=== PATIENT | male | born 1935 | race Two or more races ===

== ENCOUNTER 2020-05-24 11:49 | Outpatient (REF) | payer MEDICARE, SELFPAY ==
[2020-05-24 14:59] LABS: Prostate Specific Antigen < 0.05 ng/mL (<0.05-4.0)
== END 2020-05-24 11:50 | disposition home or self-care (01) ==
LOC: HO.10HDL 11:49
PROVIDERS: Visit Provider Urology
DX: C61 Malignant neoplasm of prostate (principal)
CPT/HCPCS: 84153

== ENCOUNTER → 2020-08-20 14:04 | Outpatient (BNVA) | payer MEDICARE, SELFPAY | PROVIDERS: PCP Physician Assistant; Referring Provider Physician Assistant; Visit Provider Urology | DX: C61 Malignant neoplasm of prostate (principal) | CPT/HCPCS: 96402; 99212; J9217 ==

== ENCOUNTER → 2020-11-19 14:40 | Outpatient (BNVA) | payer MEDICARE, SELFPAY | PROVIDERS: PCP Nurse Practitioner Family; Visit Provider Urology | DX: Z13.89 Encounter for screening for other disorder (principal) | CPT/HCPCS: Q3014 ==

== ENCOUNTER → 2020-12-17 13:57 | Outpatient (BNVA) | payer MEDICARE, SELFPAY | PROVIDERS: PCP Physician Assistant; Visit Provider Nurse Practitioner Gerontology | DX: E11.42 Type 2 diabetes mellitus with diabetic polyneuropathy (principal); E78.5 Hyperlipidemia, unspecified; I10 Essential (primary) hypertension | CPT/HCPCS: Q3014 ==

== ENCOUNTER → 2021-03-16 15:22 | Outpatient (BNVA) | payer MEDICARE, SELFPAY | PROVIDERS: Visit Provider Urology | DX: C61 Malignant neoplasm of prostate (principal); N40.1 Benign prostatic hyperplasia with lower urinary tract symptoms; N13.8 Other obstructive and reflux uropathy; E11.42 Type 2 diabetes mellitus with diabetic polyneuropathy; E78.5 Hyperlipidemia, unspecified; Z92.3 Personal history of irradiation | CPT/HCPCS: 96402; 99212; J9217 ==

== ENCOUNTER → 2021-03-25 13:23 | Outpatient (BNVA) | payer MEDICARE, SELFPAY | PROVIDERS: Visit Provider Nurse Practitioner Gerontology | DX: Z13.89 Encounter for screening for other disorder (principal) | CPT/HCPCS: Q3014 ==

== ENCOUNTER 2021-06-15 07:21 | Outpatient (REF) | payer MEDICARE, SELFPAY ==
[2021-06-15 08:15] LABS: Estimated Average Glucose 174 mg/dL; Hemoglobin A1c % 7.7 %
[2021-06-15 08:17] LABS: Alanine Aminotransferase 19 U/L (0-40); Alkaline Phosphatase 65 U/L (39-117); Anion Gap 12 (12-20); Aspartate Amino Transferase 14 U/L (5-37); Bilirubin Total 0.6 mg/dL (0.0-1.0); Blood Urea Nitrogen 15 mg/dL (9-16); Calcium 9.3 mg/dL (8.4-10.2); Carbon Dioxide 29 mmol/L (22-29); Chloride 102 mmol/L (96-108); Cholesterol 132 mg/dL; Estimated Glomerular Filt Rate > 60; Glucose Fasting 167 mg/dL (60-99); HDL Cholesterol 48 mg/dL; LDL Cholesterol Calculated 70 mg/dl; Potassium 4.3 mmol/L (3.3-5.1); Sodium 139 mmol/L (135-145); Total Protein 6.7 g/dL (6.5-8.0); Triglycerides 72 mg/dL
[2021-06-15 08:36] LABS: Prostate Specific Antigen < 0.05 ng/mL (<0.05-4.0)
[2021-06-15 09:32] LABS: Creatinine Urine 56.94 mg/dL; Microalbum/Creatinine Ratio Ur 12.2 ug/mg cr
[2021-06-17 13:30] LABS: LDL Cholesterol Direct 68 mg/dL (<100)
[2021-06-21 11:47] LABS: Testosterone, Total 18 ng/dL (250-1100)
== END 2021-06-15 07:22 | disposition home or self-care (01) ==
LOC: HO.LAB 07:21
PROVIDERS: Absent Provider Nurse Practitioner Gerontology; PCP Physician Assistant; Visit Provider Urology
DX: Z12.5 Encounter for screening for malignant neoplasm of prostate (principal); C61 Malignant neoplasm of prostate; E11.42 Type 2 diabetes mellitus with diabetic polyneuropathy
CPT/HCPCS: 36415; 80053; 80061; 82043; 83036; 83721; 84153; 84403

== ENCOUNTER → 2021-06-22 13:16 | Outpatient (BNVA) | payer MEDICARE, SELFPAY | PROVIDERS: PCP Physician Assistant; Visit Provider Urology | DX: Z13.89 Encounter for screening for other disorder (principal) | CPT/HCPCS: Q3014 ==

== ENCOUNTER → 2021-08-05 13:49 | Outpatient (BNVA) | payer MEDICARE, SELFPAY | PROVIDERS: PCP Physician Assistant; Visit Provider Nurse Practitioner Gerontology | DX: Z13.89 Encounter for screening for other disorder (principal) | CPT/HCPCS: Q3014 ==

== ENCOUNTER 2021-10-24 16:22 | Outpatient (REF) | payer OTHER, SELFPAY ==
--- NOTE | ~2021-10-24 | MR_ITS ---
MRI OF THE BRAIN WITHOUT IV CONTRAST INDICATION: Amnesia. COMPARISON: None available. TECHNIQUE: Multiplanar multisequence MR imaging of the brain was obtained without IV contrast. FINDINGS: There is no hydrocephalus, extra-axial surface collection, or herniation. There is severe left-sided mesial temporal volume loss with associated T2 signal changes suggesting left-sided mesial temporal sclerosis. The left temporal lobe overall is decreased in size comparison to the right side seen in the setting of semantic variant primary progressive aphasia or other neurodegenerative processes and can be clinically correlated. There is background level cervical volume loss and there is moderate chronic microangiopathy. Loss of the distal cervical and intradural right vertebral artery flow void suggesting slow flow within versus occlusion of this vessel. Etat crible appearance of the basal ganglia bilaterally as the sequela of chronic hypertension. The major flow voids at the skull base are preserved. There is no acute infarct on diffusion-weighted imaging. There is no intracranial hemorrhage on the gradient recalled echo acquisition. The midline structures are normal. The cerebellar tonsils are normally positioned. The cerebellum and brainstem are normal. The craniocervical junction is normal. Osseous marrow signal intensity is homogenous. The visualized soft tissues are unremarkable. There is a retention cyst within the left maxillary sinus. Mild mucosal thickening throughout the ethmoid air cells bilaterally. MR/MR head/brain wo con IMPRESSION: - There is severe left-sided mesial temporal volume loss with associated T2 signal changes suggesting left-sided mesial temporal sclerosis. The left temporal lobe overall is decreased in size comparison to the right side seen in the setting of semantic variant primary progressive aphasia or other neurodegenerative processes and can be clinically correlated. - There is background level cervical volume loss and there is moderate chronic microangiopathy. Etat crible appearance of the basal ganglia bilaterally as the sequela of chronic hypertension. - Loss of the distal cervical and intradural right vertebral artery flow void suggesting slow flow within versus occlusion of this vessel.
[2021-10-24 17:51] LABS: Hematocrit 36.7 % (42.0-52.0); Hemoglobin 12.2 g/dl (14.0-18.0); Mean Corpuscular HGB Conc 33.2 g/dl (31.0-36.0); Mean Corpuscular Hemoglobin 31.4 pg (27.0-33.0); Mean Corpuscular Volume 94.3 fL (80.0-98.0); Mean Platelet Volume 10.4 fL (9.4-12.4); Platelet Count 241 X10*3/uL (160-400); Red Blood Count 3.89 X10*6/uL (4.60-5.80); Red Cell Distribution Width 12.5 % (11.0-16.0); White Blood Count 5.7 X10*3/uL (4.8-10.8)
[2021-10-24 17:57] LABS: Estimated Average Glucose 166 mg/dL; Hemoglobin A1c % 7.4 %
[2021-10-24 18:02] LABS: Appearance Urine CLEAR; Color Urine YELLOW; Glucose Urine UA NEG (NEG); Leukocyte Esterase Urine NEG (NEG); Nitrite Urine NEG (NEG); Urine Blood NEG (NEG); Urine Ketones NEG (NEG); Urine Protein NEG (NEG-TRACE)
[2021-10-24 18:21] LABS: Creatinine Urine 41.75 mg/dL
[2021-10-24 18:22] LABS: Cholesterol 149 mg/dL; HDL Cholesterol 60 mg/dL; Iron 50 mcg/dL (45-160); LDL Cholesterol Calculated 74 mg/dl; Percent Iron Saturation 17 % (15-50); Total Iron Binding Capacity 299 mcg/dL (228-428); Triglycerides 77 mg/dL; Unsaturated Iron Binding 249 ug/dL
[2021-10-24 18:33] LABS: Ferritin 32 ng/mL (20-250)
[2021-10-24 18:45] LABS: Prostate Specific Antigen < 0.05 ng/mL (<0.05-4.0)
[2021-10-24 18:48] LABS: Vitamin B12 227 pg/mL (200-900)
[2021-10-29 08:42] LABS: Testosterone, Total 11 ng/dL (250-1100)
== END 2021-10-24 16:23 | disposition home or self-care (01) ==
LOC: HO.MRI 16:22
PROVIDERS: Absent Provider Urology; PCP Physician Assistant; Visit Provider Physician Assistant
DX: Z12.5 Encounter for screening for malignant neoplasm of prostate (principal); R41.3 Other amnesia; I10 Essential (primary) hypertension; C61 Malignant neoplasm of prostate; E78.5 Hyperlipidemia, unspecified; R30.0 Dysuria; E11.42 Type 2 diabetes mellitus with diabetic polyneuropathy; D50.9 Iron deficiency anemia, unspecified
CPT/HCPCS: 36415; 70551; 80061; 81003; 82043; 82607; 82728; 82746; 83036; 83540; 84153; 84403; 85027

== ENCOUNTER → 2021-11-02 14:34 | Outpatient (BNVA) | payer OTHER, SELFPAY | PROVIDERS: PCP Physician Assistant; Visit Provider Urology | DX: Z13.89 Encounter for screening for other disorder (principal) | CPT/HCPCS: Q3014 ==

== ENCOUNTER → 2021-11-22 07:56 | Outpatient (BNVA) | payer OTHER, SELFPAY | PROVIDERS: PCP Physician Assistant; Visit Provider Nurse Practitioner Gerontology | DX: E11.42 Type 2 diabetes mellitus with diabetic polyneuropathy (principal); E78.5 Hyperlipidemia, unspecified; I10 Essential (primary) hypertension | CPT/HCPCS: Q3014 ==

== ENCOUNTER 2022-02-24 12:47 | Outpatient (REF) | payer OTHER, SELFPAY ==
[2022-02-24 14:47] LABS: Prostate Specific Antigen < 0.05 ng/mL (<0.05-4.0)
[2022-03-01 13:31] LABS: Testosterone, Total 14 ng/dL (250-1100)
== END 2022-02-24 12:48 | disposition home or self-care (01) ==
LOC: HO.10HDL 12:47
PROVIDERS: Visit Provider Urology
DX: Z12.5 Encounter for screening for malignant neoplasm of prostate (principal); C61 Malignant neoplasm of prostate
CPT/HCPCS: 36415; 84153; 84403

== ENCOUNTER → 2022-03-03 09:32 | Outpatient (BNVA) | payer OTHER, SELFPAY | PROVIDERS: PCP Physician Assistant; Visit Provider Urology | DX: C61 Malignant neoplasm of prostate (principal) | CPT/HCPCS: Q3014 ==

== ENCOUNTER 2022-09-09 09:27 | Outpatient (REF) | payer OTHER, SELFPAY ==
[2022-09-09 11:44] LABS: Prostate Specific Antigen < 0.10 ng/mL (<0.05-4.0)
== END 2022-09-09 09:28 | disposition home or self-care (01) ==
LOC: HO.LAB 09:27
PROVIDERS: PCP Physician Assistant; Visit Provider Urology
DX: Z12.5 Encounter for screening for malignant neoplasm of prostate (principal); C61 Malignant neoplasm of prostate
CPT/HCPCS: 36415; 84153

== ENCOUNTER → 2022-09-15 10:37 | Outpatient (BNVA) | payer OTHER, SELFPAY | PROVIDERS: PCP Physician Assistant; Visit Provider Urology | DX: C61 Malignant neoplasm of prostate (principal); E11.42 Type 2 diabetes mellitus with diabetic polyneuropathy; Z92.3 Personal history of irradiation; Z79.82 Long term (current) use of aspirin; Z79.4 Long term (current) use of insulin; Z79.899 Other long term (current) drug therapy | CPT/HCPCS: Q3014 ==

== ENCOUNTER → 2023-01-23 11:22 | Outpatient (BNVA) | payer OTHER, SELFPAY | PROVIDERS: PCP Physician Assistant; Visit Provider Urology | DX: C61 Malignant neoplasm of prostate (principal); Z92.3 Personal history of irradiation | CPT/HCPCS: Q3014 ==

== ENCOUNTER 2023-02-08 15:35 | Outpatient (AMB) | payer OTHER, SELFPAY ==
--- NOTE | 2023-02-08 15:36 | MHC.PC.OV ---
Vital Signs 02/08/23 15:39 Height 5 ft 6 in Weight 188 lb 2 oz BMI 30.4 BP 132/76 Blood Pressure Location Lt brachial Position Sitting Pulse 90 Pulse Source Pulse Oximeter Pulse Oximetry (%) 98 Oxygen Delivery Method Room Air Intake Visit Reasons: Dysphagia/bilateral knee pain Intake Note: pt is here for f/u on dysphagia/bilateral knee pain, lot of pain while walking, and patient has been sleeping more then normal [employer] Superintendent Required: No Accompanied by: Daughter Allergies No Known Allergies [No Known Allergies*] Allergy (Verified 02/08/23 15:51) Medication List - Last Reconciled 02/08/23 by Julien Stacy PA-C aspirin 81 mg PO QAM atorvastatin 40 mg PO QAM blood pressure monitor (Blood Pressure Kit) As directed calcium carbonate-vitamin D3 500 mg-5 mcg (200 unit) (Oyster Shell Calcium-Vitamin D3) 1 tab PO QAM 90 days donepezil 10 mg PO BEDTIME dulaglutide (Trulicity) 0.75 mg (0.5 mL) subcut QWEEK flash glucose scanning reader As directed flash glucose sensor (TOK.tvyle Aleksandra 14 Day Sensor kit) 1 ea topical Q2W ibuprofen 800 mg PO TID lisinopril 10 mg PO QAM metformin 1,000 mg PO BID 90 days pen needle, diabetic (BD Ultra-Fine Lydia Pen Needle) 1 ea subcut DAILY tamsulosin 0.4 mg PO BEDTIME 90 days Tobacco use date assessed: 02/08/23 Fall risk assessment: 1 Fall in past year Last assessed Fall Risk: 02/08/23 Dental Screening Dental Screen Date: 02/08/23 Did you have a dental visit in the last 12 months?: No Did you have a dental problem in the last 6 months where you did not have access to dental care?: No Was dental information given to patient?: No HPI Dysphagia/bilateral knee pain HPI Details Patient is an 87 -year-old male here today for a f/u visit. . . His daughter is giving the majority of his history. ? Patient's past medical history significant for hypertension, dementia, type 2 diabetes. Concerns--> family is concerned about patient's depression as he has been more withdrawn from family as of lately. Has been having decreased appetite. Fortunately has not lost any significant amount of weight since last office visit. Also family concerned about patient's balance as he has been complaining of his bilateral knee pains. Not interested in seeing Orthopedics at this time for cortisone injections ? .. .. HTN: Blood pressure acceptable today in office.? Continues on lisinopril with good effect. ? .. ? Diabetes type 2: Is followed by Endocrine. Patient was recently taken off Tresiba hypoglycemia.? Today's A1c at 8.1. Family reports he has not been adherent by a diabetic diet, often snacking on sugar and carbohydrates. Has been restarted on trulicity 0.75 weekly. Report his blood sugars have been 130-160s ?. ? .. ? Prostate cancer: Patient is followed by Urology and is currently on chemotherapy. Recent PSAs have been undetectable. Patient denies any urinary symptoms. 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 Mother FH: ovarian cancer Daughter Drowning, accidental Daughter Lupus Social History Household Members Other:: DAughter Housing: House Alcohol intake: former Patient Tobacco Use Status: Former Tobacco user e-Cigarette/Vaping Use: Never Used service: No Current occupational status: disabled Cognitive needs: Yes Hearing needs: No Vision needs: Yes Questionnaire PHQ-9 Over the last 2 weeks, how often have you been bothered by any of the following problems? 1. Little interest or pleasure in doing things: not at all 2. Feeling down, depressed, or hopeless: not at all 3. Trouble falling or staying asleep, or sleeping too much: not at all 4. Feeling tired or having little energy: not at all 5. Poor appetite or overeating: not at all 6. Feeling bad about yourself - or that you are a failure or have let yourself or your family down: not at all 7. Trouble concentrating on things, such as reading the newspaper or watching television: not at all 8. Moving or speaking so slowly that other people could have noticed. Or the opposite - being so fidgety or restless that you have been moving around a lot more than usual: not at all 9. Thoughts that you would be better off or of hurting yourself in some way: not at all Total score: 0 Depression Screening Interpretation: Negative 76509 - PHQ-9 Billing: Yes Source: Developed by Drs. Dev Thompson, Leila Saini, Glen Santiago and colleagues, with an educational rica from [employer]. Thrive Questionnaire Date Thrive assessed: 02/08/23 I am a: Patient What is your living situation today?: I have a steady place to live Within the past 12 months, did the food you bought not last and you didn't have the money to get more?: Never true Within the past 12 months, did you worry whether your food would run out before you got money to buy more?: Never true Do you have trouble paying for medicines?: No Do you have trouble getting transportation to medical appointments?: No Do you have trouble paying your heating and electricity bill?: No Do you have trouble taking care of your child, family member or friend?: No Do you have trouble with day-to-day activities such as bathing, preparing meals, shopping, managing finances, etc.?: No Are you currently unemployed and looking for a job?: No Are you interested in more education?: No Please select the resources that you would like help with: None Currently or been in a relationship where the following occur: no concerns reported MARIANA-7 AMB Questionnaire MARIANA-7 Date MARIANA - 7 assessed: 02/08/23 Feeling nervous, anxious, or on edge: 0 = Not at all Not being able to stop or control worryin = Not at all Worrying too much about different things: 0 = Not at all Trouble relaxin = Not at all Being so restless that it is hard to sit still: 0 = Not at all Becoming easily annoyed or irritable: 0 = Not at all Feeling afraid as if something awful might happen: 0 = Not at all Total MARIANA-7 score (0-4 normal; 5-9 mild; 10-14 moderate; 15-21 severe): 0 Source: Developed by Drs. Dev Thompson, Leila Saini, Glen Santiago and colleagues, with an educational rica from [employer]. MARIANA-7 Assessment Billing MARIANA-7 Assessment Tool: MARIANA-7 Assessment [id number] Review of Systems Const Denies headache(s) Eyes Denies loss of vision ENT Denies vertigo, Denies dizziness, Denies headache(s) and Denies sore throat Card Denies chest pain, Denies leg edema and Denies lightheadedness Resp Denies cough, Denies hemoptysis and Denies wheezing GI Denies abdominal pain, Denies melena, Denies constipation, Denies diarrhea and Denies vomiting Denies dysuria, Denies urinary frequency and Denies urinary urgency Musc Denies arthralgias, Denies joint swelling, Denies numbness and Denies tingling Neuro Denies Abnormal speech present, Denies behavioral changes, Denies vertigo, Denies dizziness, Denies headache(s), Denies loss of vision, Denies memory loss, Denies numbness and Denies tingling Psych Denies anxiety, Denies behavioral changes, Denies depression, Denies memory loss and Denies panic attacks Abrahan/Lymph Denies easy bleeding and Denies easy bruising Aller/Immun Denies wheezing Physical exam (Primary Care) Vital Signs: Last Vital Signs Pulse 90 02/08/23 15:39 BP 132/76 02/08/23 15:39 Pulse Ox 98 02/08/23 15:39 Oxygen Delivery Method Room Air 02/08/23 15:39 BMI result Body Mass Index 30.4 Tobacco/Smoking Status: Tobacco use Status Tobacco use date assessed 02/08/23 02/08/23 15:48 Patient Tobacco Use Status Former Tobacco user 02/08/23 15:48 e-Cigarette/Vaping Use Never Used 02/08/23 15:48 PHQ-9: PHQ-9 Score PHQ-9: Total score 0 02/08/23 15:52 Depression Screening Interpretation: Negative Thrive Assessment: Date of Thrive Assessment Date Thrive assessed 02/08/23 02/08/23 15:48 Currently or been in a relationship where the following occur: no concerns reported Const General: healthy appearing, no acute distress, alert and awake Nutritional Appearance: well nourished Orientation/consciousness: oriented to person, oriented to place and oriented to time HENMT Ears: TM's normal bilaterally General nose exam: Normal nasal mucous membranes and turbinates present Eyes Conjunctivae: conjunctivae normal Sclerae: sclerae normal Pupils: Equal, round and reactive pupils present Neck Neck: Yes no lymphadenopathy and Yes no JVD Thyroid: Thyroid normal Carotids: no bruits Resp Effort & Inspection: normal respiratory effort and not tachypneic Auscultation: no crackles, no rales, no rhonchi and no wheezes Cardio Rate: regular rate Rhythm: regular rhythm Heart sounds: no murmurs and normal S1 and S2 GI Palpation (GI): Soft to palpation, nontender, no hepatomegaly and no splenomegaly Auscultation: normal bowel sounds Skin General skin exam: no rashes or lesions noted and dry skin Neuro General: oriented to person, oriented to place and oriented to time Cranial nerves: Yes Equal, round and reactive pupils present Speech: No Abnormal speech present Gait exam (Neuro): Normal gait present Motor exam (neuro): no tremor noted Extrem Right upper extremity: full ROM Left upper extremity: full ROM Right lower extremity: full ROM; no edema Left lower extremity: full ROM; no edema Psych Mental Status: mental status grossly normal Speech and movement: Normal speech and movement present Affect: normal affect Attitude: cooperative Thought process: Normal thought process present Results AMB Hemoglobin A1c AMB Hemoglobin A1c 8.2 % Last Edit by Mason Shaw CMA on 02/08/23 16:21 Results Reviewed Results Reviewed: Laboratory Last Values Hgb A1c (Clinic) 8.2 % (4.0-6.0) H 02/08/23 16:14 Assessment and Plan Assessment & Plan (1) Osteoarthritis of knees, bilateral: Code(s): M17.0 - Bilateral primary osteoarthritis of knee Qualifiers: Osteoarthritis type: primary Qualified Code(s): M17.0 - Bilateral primary osteoarthritis of knee Plan: Patient with knee osteoarthritis. Has been having trouble walking and has some pain in his bilateral knees. Has been using ibuprofen and topical treatments with only minimal relief. Advised on orthopedic evaluation of possible cortisone injection though patient declining. (2) Prostate cancer: Comment: High-grade 2019 external beam radiation with hormone therapy Code(s): C61 - Malignant neoplasm of prostate Plan: Continues to follow urology for his prostate cancer, has been treated with radiation and hormone therapy. He continues to have urinary incontinence to which he does use of though briefs. Most recent PSA undetectable (3) HTN (hypertension): Code(s): I10 - Essential (primary) hypertension Qualifiers: Hypertension type: primary hypertension Qualified Code(s): I10 - Essential (primary) hypertension Plan: Patient's blood pressure acceptable today in office. Will continue current dose of antihypertensive medication with goal blood pressure to be below 140/90 (4) Type 2 diabetes mellitus with polyneuropathy: Code(s): E11.42 - Type 2 diabetes mellitus with diabetic polyneuropathy Plan: Patient continues on Trulicity weekly and metformin 1000 b.i.d.. Blood sugars have been fairly stable. Goal A1c is to remain below 8.0 due to patient's age in correlated ease. (5) MDD (major depressive disorder), recurrent episode, moderate: Code(s): F33.1 - Major depressive disorder, recurrent, moderate Plan: Family is concerned about patient's mood, does seem somewhat depressed at times. Has been withdrawn from family. Family willing to start patient on mirtazapine 7.5 mg to help increase his appetite and decrease his depression. Orders: Orders Comprehensive Collins. Panel Fast 02/08/23 I10 - Essential (primary) hypertension Lipid Panel 02/08/23 E78.5 - Hyperlipidemia, unspecified Microalbumin, Random (w Creat) 02/08/23 E11.42 - Type 2 diabetes mellitus with diabetic polyneuropathy Complete Blood Count no Diff 02/08/23 E11.42 - Type 2 diabetes mellitus with diabetic polyneuropathy AMB Hemoglobin A1c 02/08/23 E11.9 - Type 2 diabetes mellitus without complications Medications: New mirtazapine 7.5 mg PO BEDTIME 90 days 90 tabs 1RF F33.1 - Major depressive disorder, recurrent, moderate ibuprofen 800 mg PO TID 30 days PRN 90 tabs 1RF pain M17.0 - Bilateral primary osteoarthritis of knee Coding Level of Care Code Est Pt Level 4 (54547) Diagnoses Osteoarthritis of knees, bilateral M17.0 Osteoarthritis type: primary Prostate cancer C61 HTN (hypertension) I10 Hypertension type: primary hypertension Type 2 diabetes mellitus with polyneuropathy E11.42 MDD (major depressive disorder), recurrent episode, moderate F33.1 Additional Codes MARIANA-7 Assessment Billing - MARIANA-7 Assessment Tool: MARIANA-7 Assessment [id number] ([id number])
[2023-02-08 15:39] VITALS: BP 132/76; PULSE 90; O2SAT 98; BMI 30.4
== END 2023-02-08 16:26 | disposition home or self-care (01) ==
PROVIDERS: Visit Provider Physician Assistant
DX: M17.0 Bilateral primary osteoarthritis of knee (principal); C61 Malignant neoplasm of prostate; I10 Essential (primary) hypertension; E11.42 Type 2 diabetes mellitus with diabetic polyneuropathy; F33.1 Major depressive disorder, recurrent, moderate
CPT/HCPCS: 83036; 96127; 99214

== ENCOUNTER 2023-07-09 15:57 | Outpatient (REF) | payer OTHER, SELFPAY ==
[2023-07-09 16:20] LABS: MANUAL DIFF FLAG NO
[2023-07-09 17:23] LABS: Urine Cytology See Pathology rpt
[2023-07-09 17:30] LABS: Appearance Urine Cloudy; Color Urine Dark Yellow; Glucose Urine UA Negative (Negative); Leukocyte Esterase Urine Moderate (2+) (Negative); Nitrite Urine Negative (Negative); PH 5.5 (5.0-9.0); UMIC TRIGGER UACC YES; Urine Blood Large (3+) (Negative); Urine Ketones Trace mg/dL (Negative); Urine Protein 30 (1+) mg/dL (Neg-Trace)
[2023-07-09 17:35] LABS: Bacteria Urine None Seen (None Seen); Hyaline Casts Urine 0-2 /LPF (0-2); Squamous Epithelial Cell Urine 0-2 /HPF (0-2); UACC Culture Trigger YES; WBC Urine >50 /HPF (0-5)
[2023-07-09 17:37] LABS: RBC Urine >20 /HPF (0-2)
[2023-07-09 17:38] LABS: Basophils Absolute Auto 0.1 X10*3/uL (0.0-0.2); Basophils Percent Auto 0.7 % (0-2); Eosinophils Absolute Auto 0.1 X10*3/uL (0.0-0.4); Eosinophils Percent Auto 1.5 % (0-4); Hematocrit 36.1 % (42.0-52.0); Hemoglobin 11.9 g/dl (14.0-18.0); Imm Gran Abs Auto 0.06 X10*3/uL (0.00-0.03); Imm Gran Pct Auto 0.9 % (0.0-0.4); Lymphocytes Absolute Auto 1.8 X10*3/uL (1.2-4.9); Mean Corpuscular Hemoglobin 30.5 pg (27.0-33.0); Mean Corpuscular Volume 92.6 fL (80.0-98.0); Mean Platelet Volume 10.7 fL (9.4-12.4); Monocytes Absolute Auto 0.6 X10*3/uL (0.1-1.2); Monocytes Percent Auto 8.1 % (2-11); Neutrophils Absolute Auto 4.2 x10*3/uL (2.0-8.3); Neutrophils Percent Auto 61.8 % (45-73); Platelet Count 276 X10*3/uL (160-400); Red Cell Distribution Width 12.4 % (11.0-16.0); White Blood Count 6.8 X10*3/uL (4.8-10.8)
[2023-07-09 17:49] LABS: Alanine Aminotransferase 16 U/L (0-40); Albumin Level 4.2 g/dL (3.5-5.0); Alkaline Phosphatase 72 U/L (39-117); Anion Gap 15 (12-20); Aspartate Amino Transferase 16 U/L (5-37); Bilirubin Total 0.4 mg/dL (0.0-1.0); Blood Urea Nitrogen 15 mg/dL (9-16); Carbon Dioxide 27 mmol/L (22-29); Chloride 99 mmol/L (96-108); Estimated Glomerular Filt Rate > 60; Glucose Random 157 mg/dL (60-115); Potassium 3.9 mmol/L (3.3-5.1); Sodium 137 mmol/L (135-145); Total Protein 7.5 g/dL (6.5-8.0)
[2023-07-09 18:15] LABS: Prostate Specific Antigen < 0.10 ng/mL (<0.05-4.0)
== END 2023-07-09 15:58 | disposition home or self-care (01) ==
LOC: HO.LAB 15:57
PROVIDERS: Internal Medicine; Urology; PCP Physician Assistant; Visit Provider Physician Assistant
DX: R31.9 Hematuria, unspecified (principal); R31.1 Benign essential microscopic hematuria; C61 Malignant neoplasm of prostate; Z12.5 Encounter for screening for malignant neoplasm of prostate
CPT/HCPCS: 36415; 80053; 81001; 84153; 85025; 87086; 88112

== ENCOUNTER 2023-07-12 09:19 | Outpatient (AMB) | payer OTHER, SELFPAY ==
--- NOTE | 2023-07-12 09:38 | MHC.OFFVIS ---
Intake Intake Visit Reasons: 6m/PSA(set) Intake Note: Patient is Present for Follow Up PSA/PVR Urology Medication: Tamsulosin Antibiotic Allergies: None Blood Thinners: Aspirin PVR: Compliants: Patient has been having some urinary issues. Allergies No Known Allergies [No Known Allergies*] Allergy (Verified 07/12/23 09:39) HPI HPI Comments History of Present Illness Details Clemente is a pleasant male. He is a patient of Dr. Christensen. He is seen for the following urologic condition. - prostate cancer Lao translation provided by qualified medical device assembler PSA remaining in range Had episode of hematuria Secondary to use of 800 mg ibuprofen twice a day for a week for arthritis pain Discussed minimizing any inflammatories Six month follow-up PSA Prostate cancer Group 4 - EXRT plus hormones diagnosed 2018 - last GnRH February 2021 Prostate cancer diagnosed by Dr. Hoover 2018 Original pathology Anurag 6 and Anurag 8 Initial treatment external beam radiation with 2 years of hormone therapy GnRH and Casodex Completed finasteride till 02/17 PSA - 08/19 <0.1, 03/19 <0.1, 06/19 PSA <0.1, T 18, 10/24 <0.1 T11, 02/17 <0.1 14, 09/21 <0.1, 01/19 <0.1, 07/21 <0.1 Continue to follow-up every 6 months with lab work [facility] Medical History Type 2 diabetes mellitus with polyneuropathy Memory difficulties Prostate cancer Type 2 diabetes mellitus with polyneuropathy Hyperlipidemia LDL goal <100 Surgical History History of cataract surgery History of open reduction and internal fixation (ORIF) procedure Family History Father No problems noted. Mother FH: ovarian cancer Daughter Drowning, accidental Daughter Lupus Social History Household Members Other:: DAughter Housing: House Alcohol intake: former Patient Tobacco Use Status: Former Tobacco user e-Cigarette/Vaping Use: Never Used service: No Current occupational status: disabled Cognitive needs: Yes Hearing needs: No Vision needs: Yes Review of Systems Const Denies chills and Denies fever(s) Card Reports no additional complaints and Denies syncope Resp Denies cough GI Denies abdominal pain and Denies heartburn Reports as per HPI and Denies change in libido Neuro Denies syncope Psych Denies change in libido Endo Denies change in libido Physical Exam Const General: cooperative, healthy appearing, comfortable and no acute distress Orientation/consciousness: patient oriented x3 HEENT Face and sinus: Yes normal facial exam Mouth: moist mucous membranes Neck Neck: Yes normal visual inspection, Yes full ROM and Yes trachea midline Chest Chest palpation & inspection: normal inspection of the chest Resp Effort & Inspection: normal respiratory effort, able to speak in complete sentences and no respiratory distress GI Inspection: Yes normal to inspection Back/Spine/Pelvis Cervical Spine: normal cervical lordosis Thoracic/Lumbar Spine: thoracic and lumbar spine normal to inspection Skin General skin exam: no rashes or lesions noted Neuro General: patient oriented x3, gait normal, tone normal and moves all extremities Extrem General: Yes normal to inspection and Yes capillary refill normal Assessment & Plan Assessment & Plan (1) Prostate cancer: Comment: High-grade 2019 external beam radiation with hormone therapy Code(s): C61 - Malignant neoplasm of prostate (2) Hematuria: Code(s): R31.9 - Hematuria, unspecified Plan Six month follow-up lab work Orders: Orders AMB Urinalysis Automated Today Z13.9 - Encounter for screening, unspecified AMB Post Void Residual by ultrasound Today R32 - Unspecified urinary incontinence Patient Instructions: Imaging studies, laboratory and physical exam results were discussed and reviewed in detail. No major barriers to patient understanding were identified. An opportunity to ask questions regarding the treatment plan was provided. All questions were answered. The patient expressed understanding and agreement with the above treatment plan. The patient is aware they should contact our office by phone for worsening of their current condition or the appearance of new urologic symptoms. Compliance is encouraged with any medications and followup testing that is ordered. It is a privilege to participate in the urologic care of your patient. If you have any questions or concerns regarding treatment for the above conditions, or other urologic issues, please do not hesitate to contact me. The office telephone contact is [phone]. This note is constructed using voice recognition software. While every effort has been made to ensure accuracy automobile accessories installer errors may have been included. Yours sincerely, Dr Deuce Oropeza MD, [facility] - Urology Providers of Expert, Compassionate Care for the Genitourinary System Coding Level of Care Code Tele Est Pt Level 3 (12134) Diagnoses Prostate cancer C61 Hematuria R31.9
== END 2023-07-12 09:55 | disposition home or self-care (01) ==
PROVIDERS: PCP Physician Assistant; Visit Provider Urology
DX: C61 Malignant neoplasm of prostate (principal); R31.9 Hematuria, unspecified
CPT/HCPCS: 99213

== ENCOUNTER → 2023-07-12 09:19 | Outpatient (BNVA) | payer OTHER, SELFPAY | PROVIDERS: PCP Physician Assistant; Visit Provider Urology | DX: C61 Malignant neoplasm of prostate (principal); R31.9 Hematuria, unspecified | CPT/HCPCS: 99212 ==

== ENCOUNTER 2023-08-13 15:29 | Outpatient (AMB) | payer OTHER, SELFPAY ==
--- NOTE | 2023-08-13 16:04 | MHC.PC.OV ---
Vital Signs 08/13/23 16:08 Height 5 ft 6 in Weight 181 lb BMI 29.2 BP 118/64 Blood Pressure Location Lt brachial Position Sitting Pulse 84 Pulse Source Pulse Oximeter Pulse Oximetry (%) 98 Oxygen Delivery Method Room Air Intake Visit Reasons: f/u DMII/ HTN Intake Note: Patient is here to follow up on DMII and HTN. Consulting Practice Manager Required: No Accompanied by: Grand Child Allergies No Known Allergies [No Known Allergies*] Allergy (Verified 08/13/23 16:25) Medication List - Last Reconciled 08/13/23 by Julien Stacy PA-C aspirin 81 mg PO QAM atorvastatin 40 mg PO QAM blood pressure monitor (Blood Pressure Kit) As directed calcium carbonate-vitamin D3 500 mg-5 mcg (200 unit) (Oyster Shell Calcium-Vitamin D3) 1 tab PO QAM 90 days dimethicone 12.5% (Hydraguard-D) 1 appl topical DAILY 30 days donepezil 10 mg PO BEDTIME dulaglutide (Trulicity) 0.75 mg (0.5 mL) subcut QWEEK flash glucose scanning reader As directed flash glucose sensor ([employer] Aleksandra 14 Day Sensor kit) 1 ea topical Q2W ibuprofen 800 mg PO TID PRN 30 days lisinopril 10 mg PO QAM metformin 1,000 mg PO BID 90 days mirtazapine 7.5 mg PO BEDTIME 90 days pen needle, diabetic (BD Ultra-Fine Lydia Pen Needle) 1 ea subcut DAILY tamsulosin 0.4 mg PO BEDTIME 90 days [washable bedpads As directed] Tobacco use date assessed: 08/13/23 HPI f/u DMII/ HTN HPI Details Patient is an 88 -year-old male here today for a f/u visit. . . His daughter is giving the majority of his history. ? Patient's past medical history significant for hypertension, dementia, type 2 diabetes. Concerns--> family concerned about patient's hematuria. Has been taking a lot of ibuprofen due to his arthritic pain. He has followed up with Urology whom recommend reducing NSAIDs. Also will hold aspirin. Awaiting renal ultrasounds at this time. Also family concerned about patient's bilateral pedal edema. No significant weight gain noted. Is fairly sedentary and does not ambulate much thus his pedal edema likely venous stasis/ dependent edema. Also family wondering about a skin lesion over his left facial cheek and would like Dermatology evaluation. ? .. .. HTN: Blood pressure acceptable today in office.? Continues on lisinopril with good effect. ? .. ? Diabetes type 2: Is followed by Endocrine. Patient was recently taken off Tresiba hypoglycemia.? Today's A1c above 9. We tried starting once weekly Trulicity though patient adamantly declines injections. Family reports he has not been adherent by a diabetic diet, often snacking on sugar and carbohydrates. PLAN: Will add on low-dose glipizide in the mornings with largest meal a day. Goal A1c is to be below 8.5 due to patient's age and comorbidities Report his blood sugars have been 130-160s ?. ? .. ? Prostate cancer: Patient is followed by Urology and is currently on chemotherapy. Recent PSAs have been undetectable. Patient denies any urinary symptoms. [facility] Medical History Type 2 diabetes mellitus with polyneuropathy Memory difficulties Prostate cancer Type 2 diabetes mellitus with polyneuropathy Hyperlipidemia LDL goal <100 Surgical History History of cataract surgery History of open reduction and internal fixation (ORIF) procedure Family History Father No problems noted. Mother FH: ovarian cancer Daughter Drowning, accidental Daughter Lupus Social History Household Members Other:: DAughter Housing: House Alcohol intake: former Patient Tobacco Use Status: Former Tobacco user e-Cigarette/Vaping Use: Never Used service: No Current occupational status: disabled Cognitive needs: Yes Hearing needs: No Vision needs: Yes Questionnaire PHQ-9 Over the last 2 weeks, how often have you been bothered by any of the following problems? 1. Little interest or pleasure in doing things: not at all 2. Feeling down, depressed, or hopeless: not at all 3. Trouble falling or staying asleep, or sleeping too much: not at all 4. Feeling tired or having little energy: not at all 5. Poor appetite or overeating: not at all 6. Feeling bad about yourself - or that you are a failure or have let yourself or your family down: not at all 7. Trouble concentrating on things, such as reading the newspaper or watching television: not at all 8. Moving or speaking so slowly that other people could have noticed. Or the opposite - being so fidgety or restless that you have been moving around a lot more than usual: not at all 9. Thoughts that you would be better off or of hurting yourself in some way: not at all Total score: 0 Depression Screening Interpretation: Negative Depression Screening Done: Yes 52277 - PHQ-9 Billing: Yes Source: Developed by Drs. Dev Thompson, Leila Saini, Glen Santiago and colleagues, with an educational rica from [employer]. Thrive Questionnaire Date Thrive assessed: 08/13/23 I am a: Patient What is your living situation today?: I have a steady place to live Within the past 12 months, did the food you bought not last and you didn't have the money to get more?: Never true Within the past 12 months, did you worry whether your food would run out before you got money to buy more?: Never true Do you have trouble paying for medicines?: No Do you have trouble getting transportation to medical appointments?: No Do you have trouble paying your heating and electricity bill?: No Do you have trouble taking care of your child, family member or friend?: No Do you have trouble with day-to-day activities such as bathing, preparing meals, shopping, managing finances, etc.?: No Are you currently unemployed and looking for a job?: No Are you interested in more education?: No Please select the resources that you would like help with: None AUDIT C Alcohol Use Questionnaire (AUDIT-C) 1. How often do you have a drink containing alcohol?: Never 3. How often do you have six or more drinks on one occasion?: Never Total Score: 0 MARIANA-7 AMB Questionnaire MARIANA-7 Date MARIANA - 7 assessed: 08/13/23 Feeling nervous, anxious, or on edge: 0 = Not at all Not being able to stop or control worryin = Not at all Worrying too much about different things: 0 = Not at all Trouble relaxin = Not at all Being so restless that it is hard to sit still: 0 = Not at all Becoming easily annoyed or irritable: 0 = Not at all Feeling afraid as if something awful might happen: 0 = Not at all Total MARIANA-7 score (0-4 normal; 5-9 mild; 10-14 moderate; 15-21 severe): 0 Source: Developed by Drs. Dev Thompson, Leila Saini, Glen Santiago and colleagues, with an educational rica from [employer]. MARIANA-7 Assessment Billing MARIANA-7 Assessment Tool: MARIANA-7 Assessment 04400 Review of Systems Const Denies headache(s) Eyes Denies loss of vision ENT Denies vertigo, Denies dizziness, Denies headache(s) and Denies sore throat Card Denies chest pain, Denies leg edema and Denies lightheadedness Resp Denies cough, Denies hemoptysis and Denies wheezing GI Denies abdominal pain, Denies melena, Denies constipation, Denies diarrhea and Denies vomiting Denies dysuria, Denies urinary frequency and Denies urinary urgency Musc Denies arthralgias, Denies joint swelling, Denies numbness and Denies tingling Neuro Denies Abnormal speech present, Denies behavioral changes, Denies vertigo, Denies dizziness, Denies headache(s), Denies loss of vision, Denies memory loss, Denies numbness and Denies tingling Psych Denies anxiety, Denies behavioral changes, Denies depression, Denies memory loss and Denies panic attacks Abrahan/Lymph Denies easy bleeding and Denies easy bruising Aller/Immun Denies wheezing Physical exam (Primary Care) Vital Signs: Last Vital Signs Pulse 84 08/13/23 16:08 BP 118/64 08/13/23 16:08 Pulse Ox 98 08/13/23 16:08 Oxygen Delivery Method Room Air 08/13/23 16:08 BMI result Body Mass Index 29.2 Tobacco/Smoking Status: Tobacco use Status Tobacco use date assessed 08/13/23 08/13/23 16:22 Patient Tobacco Use Status Former Tobacco user 08/13/23 16:04 e-Cigarette/Vaping Use Never Used 08/13/23 16:04 PHQ-9: PHQ-9 Score PHQ-9: Total score 0 08/13/23 16:26 Depression Screening Interpretation: Negative Thrive Assessment: Date of Thrive Assessment Date Thrive assessed 08/13/23 08/13/23 16:22 Const General: healthy appearing, no acute distress, alert and awake Nutritional Appearance: well nourished Orientation/consciousness: oriented to person, oriented to place and oriented to time HENMT Ears: TM's normal bilaterally General nose exam: Normal nasal mucous membranes and turbinates present Eyes Conjunctivae: conjunctivae normal Sclerae: sclerae normal Pupils: Equal, round and reactive pupils present Neck Neck: Yes no lymphadenopathy and Yes no JVD Thyroid: Thyroid normal Carotids: no bruits Resp Effort & Inspection: normal respiratory effort and not tachypneic Auscultation: no crackles, no rales, no rhonchi and no wheezes Cardio Rate: regular rate Rhythm: regular rhythm Heart sounds: no murmurs and normal S1 and S2 GI Palpation (GI): Soft to palpation, nontender, no hepatomegaly and no splenomegaly Auscultation: normal bowel sounds Skin General skin exam: no rashes or lesions noted and dry skin Neuro General: oriented to person, oriented to place and oriented to time Cranial nerves: Yes Equal, round and reactive pupils present Speech: No Abnormal speech present Gait exam (Neuro): Normal gait present Motor exam (neuro): no tremor noted Extrem Right upper extremity: full ROM Left upper extremity: full ROM Right lower extremity: full ROM and edema Left lower extremity: full ROM and edema Psych Mental Status: mental status grossly normal Speech and movement: Normal speech and movement present Affect: normal affect Attitude: cooperative Thought process: Normal thought process present Results AMB Hemoglobin A1c AMB Hemoglobin A1c 9.4 % Last Edit by SIGIFREDO Johns on 08/13/23 16:21 Results Reviewed Results Reviewed: Laboratory Last Values Hgb A1c (Clinic) 9.4 % (4.0-6.0) H 08/13/23 15:41 Assessment and Plan Assessment & Plan (1) Pedal edema: Code(s): R60.0 - Localized edema Plan: Likely due to sedentary lifestyle. Will supply with low-dose Lasix . Advised on compression socks and cuing patient to get up and move several times a day. (2) Osteoarthritis of knees, bilateral: Code(s): M17.0 - Bilateral primary osteoarthritis of knee Qualifiers: Osteoarthritis type: primary Qualified Code(s): M17.0 - Bilateral primary osteoarthritis of knee Plan: Patient with knee osteoarthritis. Has been having trouble walking and has some pain in his bilateral knees. Has been using ibuprofen and topical treatments with only minimal relief. Advised on orthopedic evaluation of possible cortisone injection though patient declining. (3) Prostate cancer: Comment: High-grade 2019 external beam radiation with hormone therapy Code(s): C61 - Malignant neoplasm of prostate Plan: Continues to follow urology for his prostate cancer, has been treated with radiation and hormone therapy. He continues to have urinary incontinence to which he does use of though briefs. Most recent PSA undetectable Have noted gross hematuria as of lately. Will renal ultrasounds have been ordered. Advised to hold aspirin and reduce ibuprofen use. (4) HTN (hypertension): Code(s): I10 - Essential (primary) hypertension Qualifiers: Hypertension type: primary hypertension Qualified Code(s): I10 - Essential (primary) hypertension Plan: Patient's blood pressure acceptable today in office. Will continue current dose of antihypertensive medication with goal blood pressure to be below 140/90 (5) Type 2 diabetes mellitus with polyneuropathy: Code(s): E11.42 - Type 2 diabetes mellitus with diabetic polyneuropathy Plan: Patient's type 2 diabetes suboptimally controlled. Today's A1c above 9. Have tried to start Trulicity though has stopped wanting to get injections. Will start low-dose glipizide with largest meal a day to try to gain some control of his blood sugars. Goal A1c is to remain below 8.5 due to patient's age in comorbidities (6) MDD (major depressive disorder), recurrent episode, moderate: Code(s): F33.1 - Major depressive disorder, recurrent, moderate Plan: PHQ-9 score 0 Patient continues on mirtazapine before bed. Patient's mood has been somewhat more stable. (7) Dementia: Code(s): F03.90 - Unspecified dementia, unspecified severity, without behavioral disturbance, psychotic disturbance, mood disturbance, and anxiety Qualifiers: Dementia type: unspecified type Dementia behavioral disturbance: without behavioral disturbance Qualified Code(s): F03.90 - Unspecified dementia without behavioral disturbance Plan: Lives at home with family whom takes very good care of him. Patient continues on denies a daily. Orders: Orders AMB Hemoglobin A1c 08/13/23 E11.42 - Type 2 diabetes mellitus with diabetic polyneuropathy US renal BI 08/13/23 R31.9 - Hematuria, unspecified XR KUB 08/13/23 R31.9 - Hematuria, unspecified Referrals Dermatology Referral L98.9 - Disorder of the skin and subcutaneous tissue, unspecified Medications: New furosemide 10 mg (1/2 x 20 mg) PO DAILY 14 days 7 tabs 0RF R60.0 - Localized edema glipizide ER 2.5 mg PO DAILY 30 days 30 tabs 3RF E11.42 - Type 2 diabetes mellitus with diabetic polyneuropathy Discontinued dulaglutide (Trulicity) Discontinued Reason: Doctor's Order 0.75 mg (0.5 mL) subcut QWEEK 6 mL 3RF E11.65 - Type 2 diabetes mellitus with hyperglycemia On Hold aspirin Hold Comment: Doctor's Order 81 mg PO QAM 90 ea 1RF E11.42 - Type 2 diabetes mellitus with diabetic polyneuropathy Coding Level of Care Code Est Pt Level 4 (49742) Diagnoses Pedal edema R60.0 Primary osteoarthritis of both knees M17.0 Osteoarthritis type: primary Prostate cancer C61 Primary hypertension I10 Hypertension type: primary hypertension Type 2 diabetes mellitus with polyneuropathy E11.42 MDD (major depressive disorder), recurrent episode, moderate F33.1 Dementia without behavioral disturbance, unspecified dementia type F03.90 Dementia type: unspecified type Dementia behavioral disturbance: without behavioral disturbance Additional Codes MARIANA-7 Assessment Billing - MARIANA-7 Assessment Tool: MARIANA-7 Assessment 74002 ([id number])
[2023-08-13 16:08] VITALS: BP 118/64; PULSE 84; O2SAT 98; BMI 29.2
== END 2023-08-13 16:44 | disposition home or self-care (01) ==
PROVIDERS: PCP Physician Assistant; Visit Provider Physician Assistant
DX: E11.42 Type 2 diabetes mellitus with diabetic polyneuropathy (principal)
CPT/HCPCS: 83036; 99214

== ENCOUNTER 2023-08-29 14:54 | Outpatient (REF) | payer OTHER, SELFPAY ==
--- NOTE | ~2023-08-29 | XR_ITS ---
EXAMINATION: XR ABDOMEN KUB CLINICAL INDICATION: Hematuria COMPARISON: CT scan of abdomen and pelvis on 11/15/2012 TECHNIQUE: AP view of the abdomen. FINDINGS: AP supine x-rays of the abdomen show nonspecific bowel gas pattern. No abnormal bowel dilatation is seen. There is diffuse fecal retention in the colon. There is normal visualization of rectal bowel gas and fecal shadows. A 0.8 cm round calcification is seen in medial right upper abdomen, corresponding to calcified gallstones seen on CT scan. Bilateral lower pelvic phleboliths and midline lower pelvic surgical clips overlapping the pubic bones are seen. XR/XR KUB IMPRESSION: 1. Nonspecific bowel gas pattern. 2. Diffuse fecal retention. 3. Calcified gallstone is present. 4. No renal calculi could be found.
--- NOTE | ~2023-08-29 | US_ITS ---
EXAMINATION: US RETROPERITONEAL LIMITED (RENAL ONLY) CLINICAL INFORMATION: Hematuria, unspecified. COMPARISON: CT abdomen and pelvis with contrast 11/15/2012. TECHNIQUE: Real-time imaging of the kidneys. FINDINGS: RIGHT KIDNEY: 10.8 x 5.7 x 6.0 cm (SAG x AP x TRV). The kidney is normal in size and contour and echogenicity. Renal cortical thickness is normal. No calculi or focal parenchymal lesions. No hydronephrosis. LEFT KIDNEY: 12.0 x 5.5 x 5.5 cm (SAG x AP x TRV). The kidney is normal in size and contour and echogenicity. Renal cortical thickness is normal. No calculi or focal parenchymal lesions. No hydronephrosis. US/US renal BI IMPRESSION: Unremarkable renal ultrasound.
== END 2023-08-29 14:55 | disposition home or self-care (01) ==
LOC: HO.US 14:54
PROVIDERS: PCP Physician Assistant; Visit Provider Physician Assistant
DX: R31.9 Hematuria, unspecified (principal)
CPT/HCPCS: 74018; 76775

== ENCOUNTER 2024-01-04 10:11 | Outpatient (REF) | payer OTHER, SELFPAY ==
[2024-01-04 11:50] LABS: Prostate Specific Antigen < 0.10 ng/mL (<0.05-4.0)
[2024-01-09 13:03] LABS: Testosterone, Total 33 ng/dL (250-1100)
== END 2024-01-04 10:12 | disposition home or self-care (01) ==
LOC: HO.10HDL 10:11
PROVIDERS: Visit Provider Urology
DX: C61 Malignant neoplasm of prostate (principal); Z12.5 Encounter for screening for malignant neoplasm of prostate
CPT/HCPCS: 36415; 84153; 84403

== ENCOUNTER 2024-01-08 10:55 | Outpatient (AMB) | payer OTHER, SELFPAY ==
--- NOTE | 2024-01-08 10:56 | A.OFFVIS_ITS ---
Intake Visit Reasons: 6 month PSA(set) Intake Note: Patient is Present for Telephone Follow Up For Urology Med: Tamsulosin Antibiotic Allergy: None Blood Thinner: Aspirin Manager Utilization Management Required: Yes Manager Utilization Management Language: Burkinan Allergies No Known Allergies [No Known Allergies*] Allergy (Verified 01/08/24 10:57) HPI Comments Details: Clemente is a pleasant male. He is a patient of Dr. Christensen. He is seen for the following urologic condition. - prostate cancer Telemedicine Evaluation 15 min Consultation [facility] Video attempted Burkinan translation provided by qualified medical reimbursement specialist Discussion with Clemente and his daughter La PSA remaining in range Six month follow-up PSA Prostate cancer Group 4 - EXRT plus hormones diagnosed 2018 - last GnRH February 2021 Prostate cancer diagnosed by Dr. Hoover 2018 Original pathology Harwood 6 and Anurag 8 Initial treatment external beam radiation with 2 years of hormone therapy GnRH and Casodex Completed finasteride till 02/17 PSA - 08/19 <0.1, 03/19 <0.1, 06/19 PSA <0.1, T 18, 10/24 <0.1 T11, 02/17 <0.1 14, 09/21 <0.1, 01/19 <0.1, 07/21 <0.1, 01/20 <0.1 Continue to follow-up every 6 months with lab work [facility] Medical History Type 2 diabetes mellitus with polyneuropathy Memory difficulties Prostate cancer Type 2 diabetes mellitus with polyneuropathy Hyperlipidemia LDL goal <100 Surgical History History of cataract surgery History of open reduction and internal fixation (ORIF) procedure Family History Father No problems noted. Mother FH: ovarian cancer Daughter Drowning, accidental Daughter Lupus Social History Household Members Other:: DAughter Housing: House Alcohol intake: former Patient Tobacco Use Status: Former Tobacco user e-Cigarette/Vaping Use: Never Used service: No Current occupational status: disabled Cognitive needs: Yes Hearing needs: No Vision needs: Yes Review of Systems Const All systems reviewed & are unremarkable except as noted in HPI and below Reports no additional complaints Resp Reports no additional complaints GI Reports no additional complaints Reports as per HPI Musc Reports no additional complaints Physical Exam Telemedicine evaluation Appropriate responses Regular breathing rate and rhythm HEENT Head: Yes normal to inspection Ears: hearing grossly normal bilaterally Eyes General: appearance normal, both eyes and all related structures Neck Neck: Yes normal visual inspection Chest Chest palpation & inspection: normal inspection of the chest Resp Effort & Inspection: normal respiratory effort and able to speak in complete sentences Telehealth Telehealth Location of provider rendering services: practice address Location of patient: address on file Patient Identification confirmed using: Name, : Yes Telehealth method: video Patient verbally consented to treatment: Yes Patient verbally consented to billing insurance company: Yes Patient informed of any privacy concerns related to visit: Yes Assessment & Plan Assessment & Plan (1) Prostate cancer: Comment: High-grade 2019 external beam radiation with hormone therapy Code(s): C61 - Malignant neoplasm of prostate Category: Medical Plan Six-month follow-up PSA Orders: Orders Prostate Specific Antigen 6 Months C61 - Malignant neoplasm of prostate Patient Instructions: Imaging studies, laboratory and physical exam results were discussed and reviewed in detail. No major barriers to patient understanding were identified. An opportunity to ask questions regarding the treatment plan was provided. All questions were answered. The patient expressed understanding and agreement with the above treatment plan. The patient is aware they should contact our office by phone for worsening of their current condition or the appearance of new urologic symptoms. Compliance is encouraged with any medications and followup testing that is ordered. It is a privilege to participate in the urologic care of your patient. If you have any questions or concerns regarding treatment for the above conditions, or other urologic issues, please do not hesitate to contact me. The office telephone contact is [phone]. This note is constructed using voice recognition software. While every effort has been made to ensure accuracy rate inserter errors may have been included. Yours sincerely, Dr Deuce Oropeza MD, [facility] - Urology Providers of Expert, Compassionate Care for the Genitourinary System Coding Level of Care Code Tele Est Pt Level 3 (68591) Diagnoses Prostate cancer C61
== END 2024-01-08 11:38 | disposition home or self-care (01) ==
LOC: HO.HUSH 10:55
PROVIDERS: PCP Physician Assistant; Visit Provider Urology
DX: C61 Malignant neoplasm of prostate (principal)
CPT/HCPCS: 99213

== ENCOUNTER → 2024-01-08 10:55 | Outpatient (BNVA) | payer OTHER, SELFPAY | PROVIDERS: PCP Physician Assistant; Visit Provider Urology ==

== ENCOUNTER 2024-05-30 12:25 | Emergency (ER) | payer OTHER, SELFPAY ==
--- NOTE | ~2024-05-30 | XR_ITS ---
EXAMINATION: XR LUMBOSACRAL SPINE CLINICAL INFORMATION: Right-sided low back pain, no previous injury. COMPARISON: None available. TECHNIQUE: Three views of the lumbosacral spine. FINDINGS: There is a minimal levoconvex scoliosis, possibly positional. There is minimal straightening of the normal lordosis. There are no fractures, compression deformity, or suspicious bone lesions. There are no significant subluxations. Disc spaces are mildly narrowed, however there are more prominent ventral bulky type bridging osteophytes at all levels suggesting changes of DISH. Facet sclerosis and degeneration most notable L4-5 and L5-S1. Soft tissues demonstrate calcification in the region of the gallbladder, likely gallstone. There is extensive atheromatous calcification of the arterial structures. No definite aneurysm. Degenerative changes are present to a moderate degree of both hip joints, and both SI joints. XR/XR lumbar spine 2-3V IMPRESSION: 1. No acute bony or soft tissue abnormalities. 2. 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 3. Atheromatous changes of the arterial structures, and suspect calcified gallstone right upper quadrant. Electronically signed by: Mane Ch MD 05/30/2024 03:28 PM EDT
[2024-05-30 12:41] VITALS: BP 132/58; PULSE 92; RESP 16; TEMP 37; O2SAT 98; BMI 28.1
--- NOTE | 2024-05-30 12:41 | ED.GENADULT ---
HPI - General Adult General Chief complaint: Back Pain/Injury Stated complaint: Lower back pain Time Seen by Provider: 05/30/24 14:36 Source: patient Mode of arrival: ambulatory Limitations: no limitations History of Present Illness ED Provider: Jae VELASCO HPI narrative: 89-year-old male history of dementia, prostate cancer that resolved, and diabetes presents to ED for right-sided lower back pain radiating down 1 week. Daughter denies patient having any trauma. Daughter states patient was walking normally just state that back pain radiating down right leg. Daughter denies patient having any abdominal pain, nausea, vomiting, dysuria, constipation, blood in stool, any recent trauma. Patient has dementia. Patient himself states presently no complaints. Daughter states back pain relieved with Motrin Tylenol. Daughter denies patient having any urinary/bowel incontinence. She states patient is using bathroom normally this morning. Related Data Home Medications ?Medication ?Instructions ?Recorded ?Confirmed flash glucose scanning reader #1 ea 07/08/20 08/13/23 Previous Rx's ?Medication ?Instructions ?Recorded blood pressure monitor (Blood #1 ea 07/08/20 Pressure Kit) pen needle, diabetic 32 gauge x 1 ea subcut DAILY #100 ea 12/23/21 (BD Ultra-Fine Lydia Pen Needle) flash glucose sensor (FreeStyle 1 ea topical Q2W #2 ea 10/26/22 Aleksandra 14 Day Sensor kit) mirtazapine 7.5 mg tablet 7.5 mg PO BEDTIME 90 days #90 tabs 02/08/23 washable bedpads #2 ea 03/16/23 aspirin 81 mg tablet,delayed 81 mg PO QAM #90 ea 04/30/23 release dimethicone 12.5 % topical cream 1 appl topical DAILY 30 days #118 06/26/23 (Hydraguard-D) mL ibuprofen 800 mg tablet 800 mg PO TID PRN pain 30 days #90 07/13/23 tabs furosemide 20 mg tablet 10 mg (1/2 x 20 mg) PO DAILY 14 08/13/23 days #7 tabs calcium carbonate 500 mg-vitamin 1 tab PO QAM 90 days #90 tabs 09/25/23 D3 5 mcg (200 unit) tablet (Oyster Shell Calcium-Vitamin D3) tamsulosin 0.4 mg capsule 0.4 mg PO BEDTIME 90 days #90 caps 02/14/24 glipizide 2.5 mg tablet, extended 2.5 mg PO DAILY 30 days #30 tabs 03/10/24 release 24 hr donepezil 10 mg tablet 10 mg PO BEDTIME #90 tabs 03/24/24 metformin 1,000 mg tablet 1,000 mg PO BID 90 days #180 tabs 03/24/24 atorvastatin 40 mg tablet 40 mg PO QAM #90 tabs 04/24/24 lisinopril 10 mg tablet 10 mg PO QAM #90 tabs 04/24/24 lidocaine 4 % topical patch 1 patch topical DAILY PRN pain #30 05/30/24 ea Allergies Allergy/AdvReac Type Severity Reaction Status Date / Time No Known Allergies Allergy Verified 05/30/24 12:44 [No Known Allergies*] Review of Systems Review of Systems: Right-sided back pain Yes all other systems are reviewed and are negative [facility] Past Medical History Medical History Type 2 diabetes mellitus with polyneuropathy Memory difficulties Prostate cancer Type 2 diabetes mellitus with polyneuropathy Hyperlipidemia LDL goal <100 Surgical History History of cataract surgery History of open reduction and internal fixation (ORIF) procedure Family History Family History Father No problems noted. Mother FH: ovarian cancer Daughter Drowning, accidental Daughter Lupus Social History Social History Household Members Other:: DAughter Housing: House Alcohol intake: former Patient Tobacco Use Status: Former Tobacco user e-Cigarette/Vaping Use: Never Used Advance Directives: No Advance Directives Information Provided: Yes Do you have a plan to hurt others: No Plan service: No Current occupational status: disabled Cognitive needs: Yes Hearing needs: No Vision needs: Yes Physical Exam ED Vital Signs: Vital Signs - 24 hr 05/30/24 12:41 05/30/24 16:18 Temperature 98.6 F 98.5 F Pulse Rate 92 88 Respiratory Rate 16 20 Blood Pressure 132/58 L 140/68 H Pulse Oximetry 98 95 Oxygen Delivery Method Room Air Room Air BMI result Body Mass Index 28.1 Const General: cooperative, healthy appearing, comfortable, no acute distress, well developed, alert, awake and Physically active Orientation/consciousness: patient oriented x3 [facility] Head: Yes normal to inspection, Yes No palpable skull fracture present, Yes normocephalic and Yes atraumatic Eyes General: appearance normal, both eyes and all related structures Neck Neck: Yes normal visual inspection, Yes full ROM, Yes no lymphadenopathy, Yes no meningeal signs, Yes trachea midline, Yes supple, No anterior neck swelling and No tender Chest Chest palpation & inspection: normal inspection of the chest and normal palpation of entire chest wall Resp Effort & Inspection: normal respiratory effort and able to speak in complete sentences Auscultation: clear to auscultation bilaterally Cardio Jugular venous distension: no JVD Heart sounds: S1 normal heart sound present and S2 normal heart sound present GI Inspection: Yes normal to inspection Palpation (GI): Soft to palpation, not firm, nontender, no guarding and not rigid Back/Spine/Pelvis Back: back tenderness (mild lumbar spine tendernes) Skin General skin exam: no rashes or lesions noted, elasticity normal and turgor normal Neuro General: patient oriented x3, gait normal, tone normal, moves all extremities, Normal light touch and pain sensation, no meningeal signs, no focal motor deficits, CN's II-XI intact bilaterally and normal sensation to monofilament Extrem General: Yes normal to inspection, Yes full ROM and Yes capillary refill normal Psych Appearance: grossly normal, well kempt and not disheveled Course Course Course Narrative: This is a Rapid Medical Examination (RME) performed by Lawson Dill PA-C in triage. Full HPI, ROS, assessment and treatment plan per primary provider in the Main ED. 89 yo male hx of T2DM, HDL, dementia here w/ daughter for eval of right sided low back pain x1 week. states it's my kidneys . daughter states patient lays on a recliner on his side, may be the reason for his discomfort. no falls/ trauma. endorses urinary frequency at baseline. hx prostate cancer, in remission. denies dysuria, hematuria. + no midline spinous tenderness or step off. no paraspinal muscle tenderness. no CVAT. Plan: labs, UA, xr Medical Decision Making Medical Decision Making MDM Narrative: 89-year-old male history of dementia presents to ED for right-sided back pain for 1 week. Patient was seen walking to the bathroom with normal gait. Patient has complete range of motion of lower extremities. Negative for any abdominal tenderness. Negative for CVA or flanks. Neuro exam is intact. Patient is at baseline mentally as per family. Not suspecting epidural abscess or cauda equinus syndrome. Not suspecting kidney stones or pyelonephritis. Not suspecting renal thrombi. Family explained worrisome signs and informed to return to the ED immediately with patient. Patient is already on NSAIDs. Patient will be discharged with lidocaine patch Differential Diagnosis Differential Diagnoses: The differential diagnosis associated with the presentation includes (Lumbar radiculopathy. Fracture) Admission/Observation Consideration of admission/observation: Escalation of care including admission/observation considered Lab Data [facility] Lab Attestation statement: I reviewed the patient's lab results. 05/30/24 12:51 05/30/24 12:51 Labs: Lab Results 05/30/24 05/30/24 Range/Units 12:51 15:10 WBC 7.0 (4.8-10.8) X10*3/uL RBC 3.63 L (4.60-5.80) X10*6/uL Hgb 11.5 L (14.0-18.0) g/dl Hct 33.4 L (42.0-52.0) % MCV 92.0 (80.0-98.0) fL MCH 31.7 (27.0-33.0) pg MCHC 34.4 (31.0-36.0) g/dl RDW 12.4 (11.0-16.0) % Plt Count 243 (160-400) X10*3/uL MPV 10.0 (9.4-12.4) fL Immature Gran % (Auto) 0.3 (0.0-0.4) % Neut % (Auto) 73.3 H (45-73) % Lymph % (Auto) 18.2 L (20-40) % [place] % (Auto) 7.1 (2-11) % Eos % (Auto) 0.7 (0-4) % Baso % (Auto) 0.4 (0-2) % Lymph # (Auto) 1.3 (1.2-4.9) X10*3/uL [place] # (Auto) 0.5 (0.1-1.2) X10*3/uL Eos # (Auto) 0.1 (0.0-0.4) X10*3/uL Baso # (Auto) 0.0 (0.0-0.2) X10*3/uL Abs Immat Gran (auto) 0.02 (0.00-0.03) X10*3/uL Absolute Neuts (auto) 5.2 (2.0-8.3) x10*3/uL Absolute Nucleated RBC 0.000 (0.0-0.012) X10*3/uL Nucleated RBC % (auto) 0.0 (0.0-0.2) /100WBC Sodium 137 (135-145) mmol/L Potassium 3.8 (3.3-5.1) mmol/L Chloride 104 (96-108) mmol/L Carbon Dioxide 24 (22-29) mmol/L Anion Gap 13 (12-20) BUN 14 (9-16) mg/dL Creatinine 0.71 (0.5-1.4) mg/dL Estim Creat Clear Calc 77.3 Estimated GFR > 60 Random Glucose 199 H (60-115) mg/dL Calcium 10.0 (8.4-10.2) mg/dL Magnesium 1.6 (1.6-2.6) mg/dL Total Bilirubin 0.4 (0.0-1.0) mg/dL AST 23 (5-37) U/L ALT 20 (0-40) U/L Alkaline Phosphatase 63 (39-117) U/L Total Protein 7.0 (6.5-8.0) g/dL Albumin 3.8 (3.5-5.0) g/dL Urine Color Dark Yellow Urine Appearance Clear Urine pH 5.5 (5.0-9.0) Ur Specific [place] 1.020 (1.005-1.025) Urine Protein Negative (Neg-Trace) mg/dL Urine Glucose (UA) Negative (Negative) mg/dL Urine Ketones Trace (Negative) mg/dL Urine Blood Negative (Negative) Urine Nitrite Negative (Negative) Ur Leukocyte Esterase Negative (Negative) Independent Interpretation I performed an independent interpretation of an: Plain X-Ray Radiology Impression Discussion of test interpretation with radiology: I have reviewed the radiologist's reading. Independent Historian Clinical information obtained from an independent historian. History obtained from or confirmed by: Parent (Daughter) and Other External Record Review External record reviewed: Other (Prior Visits) Prescription Management I considered prescription management with: Pain Medication and Other Discharge Plan Discharge Clinical Impression: Arthritis, Lumbar radiculopathy Patient Disposition: Home, Self-Care Instructions: Lumbar Radiculopathy (ED), Back Pain (ED) Additional Instructions: Blood work and urine came back normal. X-ray shows arthritis. Recommend follow-up with primary care provider. Return to the ED immediately for worsening back pain, urinary/bowel incontinence, numbness/tingling/weakness of lower extremities, fever, chills, abdominal pain, flank pain, or any other concerning symptoms. Continue taking Tylenol you have at home for pain relief. FINDINGS: There is a minimal levoconvex scoliosis, possibly positional. There is minimal straightening of the normal lordosis. There are no fractures, compression deformity, or suspicious bone lesions. There are no significant subluxations. Disc spaces are mildly narrowed, however there are more prominent ventral bulky type bridging osteophytes at all levels suggesting changes of DISH. Facet sclerosis and degeneration most notable L4-5 and L5-S1. Soft tissues demonstrate calcification in the region of the gallbladder, likely gallstone. There is extensive atheromatous calcification of the arterial structures. No definite aneurysm. Degenerative changes are present to a moderate degree of both hip joints, and both SI joints. XR/XR lumbar spine 2-3V IMPRESSION: 1. No acute bony or soft tissue abnormalities. 2. 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 3. Atheromatous changes of the arterial structures, and suspect calcified gallstone right upper quadrant. Electronically signed by: Mane Ch MD 05/30/2024 03:28 PM EDT Dictated By: Mane Ch MD Signed By: <Electronically signed by Mane Ch MD in OV> 05/30/24 1528 DD/ 1327 TD/TT: 05/30/24 1327 Director Audience Marketing: Prescriptions: New lidocaine 4 % adhesive patch,medicated 1 patch topical DAILY PRN (Reason: pain) Qty: 30 0RF No Action pen needle, diabetic [BD Ultra-Fine Lydia Pen Needle] 32 gauge x 5/32 needle 1 ea subcut DAILY Qty: 100 2RF FreeStyle Aleksandra 14 Day Sensor Kit 1 ea topical Q2W Qty: 2 11RF (DME) washable bedpads large See Rx Instructions .Route .MEDSUPPLY Qty: 2 11RF Rx Instructions: As directed aspirin 81 mg tablet,delayed release (DR/EC) 81 mg PO QAM Qty: 90 1RF Hydraguard-D 12.5 % cream 1 appl topical DAILY 30 Days Qty: 118 11RF ibuprofen 800 mg tablet 800 mg PO TID PRN (Reason: pain) 30 Days Qty: 90 1RF calcium carbonate-vitamin D3 [Oyster Shell Calcium-Vit D3] 500 mg-5 mcg (200 unit) tablet 1 tab PO QAM 90 Days Qty: 90 3RF tamsulosin 0.4 mg capsule 0.4 mg PO BEDTIME 90 Days Qty: 90 1RF glipizide 2.5 mg tablet extended release 24hr 2.5 mg PO DAILY 30 Days Qty: 30 3RF metformin 1,000 mg tablet 1,000 mg PO BID 90 Days Qty: 180 1RF donepezil 10 mg tablet 10 mg PO BEDTIME Qty: 90 1RF atorvastatin 40 mg tablet 40 mg PO QAM Qty: 90 4RF lisinopril 10 mg tablet 10 mg PO QAM Qty: 90 4RF (DME) FreeStyle Aleksandra 14 Day [place] Misc See Rx Instructions Not Applicable TID Qty: 1 Rx Instructions: As directed (DME) blood pressure monitor [Blood Pressure Kit] Kit See Rx Instructions .ROUTE .MEDSUPPLY Qty: 1 0RF Rx Instructions: As directed mirtazapine 7.5 mg tablet 7.5 mg PO BEDTIME 90 Days Qty: 90 1RF furosemide 20 mg tablet 10 mg PO DAILY 14 Days Qty: 7 0RF Interventions: ED Discharge Assessment Last Done: 05/30/24 17:50 Discharge Date/Time: 05/30/24 17:50 Print Language: Slovak
[2024-05-30 12:55] LABS: MANUAL DIFF FLAG NO
[2024-05-30 12:57] LABS: Basophils Percent Auto 0.4 % (0-2); Eosinophils Absolute Auto 0.1 X10*3/uL (0.0-0.4); Eosinophils Percent Auto 0.7 % (0-4); Hematocrit 33.4 % (42.0-52.0); Hemoglobin 11.5 g/dl (14.0-18.0); Imm Gran Abs Auto 0.02 X10*3/uL (0.00-0.03); Imm Gran Pct Auto 0.3 % (0.0-0.4); Lymphocytes Absolute Auto 1.3 X10*3/uL (1.2-4.9); Lymphocytes Percent Auto 18.2 % (20-40); Mean Corpuscular HGB Conc 34.4 g/dl (31.0-36.0); Mean Corpuscular Hemoglobin 31.7 pg (27.0-33.0); Monocytes Absolute Auto 0.5 X10*3/uL (0.1-1.2); Monocytes Percent Auto 7.1 % (2-11); Neutrophils Absolute Auto 5.2 x10*3/uL (2.0-8.3); Neutrophils Percent Auto 73.3 % (45-73); Platelet Count 243 X10*3/uL (160-400); Red Blood Count 3.63 X10*6/uL (4.60-5.80); Red Cell Distribution Width 12.4 % (11.0-16.0)
[2024-05-30 13:12] LABS: Alanine Aminotransferase 20 U/L (0-40); Albumin Level 3.8 g/dL (3.5-5.0); Alkaline Phosphatase 63 U/L (39-117); Anion Gap 13 (12-20); Aspartate Amino Transferase 23 U/L (5-37); Bilirubin Total 0.4 mg/dL (0.0-1.0); Blood Urea Nitrogen 14 mg/dL (9-16); Carbon Dioxide 24 mmol/L (22-29); Chloride 104 mmol/L (96-108); Creatinine Clr Calc Pharmacy 77.3; Estimated Glomerular Filt Rate > 60; Glucose Random 199 mg/dL (60-115); Magnesium 1.6 mg/dL (1.6-2.6); Potassium 3.8 mmol/L (3.3-5.1); Sodium 137 mmol/L (135-145)
[2024-05-30 15:17] LABS: Appearance Urine Clear; Color Urine Dark Yellow; Glucose Urine UA Negative (Negative); Leukocyte Esterase Urine Negative (Negative); Nitrite Urine Negative (Negative); PH 5.5 (5.0-9.0); Urine Blood Negative (Negative); Urine Ketones Trace mg/dL (Negative); Urine Protein Negative (Neg-Trace)
[2024-05-30 16:18] VITALS: BP 140/68; PULSE 88; RESP 20; TEMP 36.9; O2SAT 95
[2024-05-30 17:50] VITALS: BP 140/68; PULSE 88; RESP 20; TEMP 36.9; O2SAT 95
== END 2024-05-30 17:50 | disposition home or self-care (01) ==
PROVIDERS: Physician Assistant Medical; Emergency Provider Emergency Medicine Emergency Medical Services; PCP Physician Assistant
DX: M54.16 Radiculopathy, lumbar region (principal); M54.2 Cervicalgia; M54.50 Low back pain, unspecified; Z79.899 Other long term (current) drug therapy
CPT/HCPCS: 36415; 72100; 80053; 81003; 83735; 85025; 99283

== ENCOUNTER → 2024-05-30 12:45 | Outpatient (BNV) | payer OTHER, SELFPAY | PROVIDERS: Emergency Provider Emergency Medicine Emergency Medical Services; PCP Physician Assistant; Visit Provider Radiology Diagnostic Radiology | DX: M54.50 Low back pain, unspecified (principal) | CPT/HCPCS: 72100 ==

== ENCOUNTER 2024-07-16 10:00 | Outpatient (AMB) | payer OTHER, SELFPAY ==
[2024-07-16 10:04] VITALS: BP 110/62; PULSE 95; O2SAT 94; BMI 29.5
--- NOTE | 2024-07-16 10:04 | A.OFFPC_ITS ---
Vital Signs 07/16/24 10:04 Height 5 ft 6 in Weight 183 lb BMI 29.5 BP 110/62 Blood Pressure Location Lt brachial Position Sitting Pulse 95 Pulse Source Pulse Oximeter Pulse Oximetry (%) 94 Oxygen Delivery Method Room Air Intake Visit Reasons: 6MoFollowup Repair Supervisor Required: No Accompanied by: Self / Same As Patient Allergies No Known Allergies [No Known Allergies*] Allergy (Verified 07/16/24 10:21) Medication List - Last Reconciled 07/16/24 by Julien Stacy PA-C aspirin 81 mg PO QAM atorvastatin 40 mg PO QAM blood pressure monitor (Blood Pressure Kit) As directed calcium carbonate-vitamin D3 500 mg-5 mcg (200 unit) (Oyster Shell Calcium- Vitamin D3) 1 tab PO QAM 90 days dimethicone 12.5% (Hydraguard-D) 1 appl topical DAILY 30 days donepezil 10 mg PO BEDTIME flash glucose scanning reader As directed flash glucose sensor (FreeStyle Aleksandra 14 Day Sensor kit) 1 ea topical Q2W furosemide 10 mg (1/2 x 20 mg) PO DAILY 14 days glipizide ER 2.5 mg PO DAILY 30 days ibuprofen 800 mg PO TID PRN 30 days lidocaine 4% 1 patch topical DAILY PRN lisinopril 10 mg PO QAM metformin 1,000 mg PO BID 90 days mirtazapine 7.5 mg PO BEDTIME 90 days pen needle, diabetic (BD Ultra-Fine Lydia Pen Needle) 1 ea subcut DAILY tamsulosin 0.4 mg PO BEDTIME 90 days [washable bedpads As directed] Tobacco use date assessed: 07/16/24 Fall risk assessment: 1 Fall in past year Last assessed Fall Risk: 07/16/24 Dental Screening Dental Screen Date: 07/16/24 Did you have a dental visit in the last 12 months?: No Did you have a dental problem in the last 6 months where you did not have access to dental care?: No Was dental information given to patient?: No HPI 6MoFollowup HPI Details Patient is an 89 -year-old male here today for a f/u visit. . . His daughter is giving the majority of his history. ? Patient's past medical history significant for hypertension, dementia, type 2 diabetes. Concerns--> family reports Clemente often has choking episodes to the point where they are doing the Heimlich on him. They report he does tend to slouch backw ards after eating which may be causing the choking episodes. We have ordered a barium swallow though has not been scheduled as of yet. Will reorder the barium swallow to evaluate for any esophageal rings or strictures that could be causing his choking episodes. ? .. .. HTN: Blood pressure acceptable today in office.? Continues on lisinopril with good effect. ? .. ? Diabetes type 2: Patient was followed by endocrinology though has lost follow-up 2 years ago. Today family worried about patient's blood sugars at the been in 2-300 range Patient was previously on Tresiba though was taken off quite some time ago.? Today's A1c above 9. We tried starting once weekly Trulicity though patient adamantly declines injections at that point. Family reports Clemente often snacking on sugar and carbohydrates. PLAN: Will add back on daily insulin for better glycemic control. Also will add Trulicity 0.75 mg weekly which offered him good glycemic control in the past. Family promises to keep the annual adherent to the medication. ?. ? .. ? Prostate cancer: Patient is followed by Urology and is currently on chemotherapy. Recent PSAs have been undetectable. Patient denies any urinary symptoms. Laboratory Tests 02/24/22 08/11/22 09/09/22 12:52 11:15 09:48 RBC Hgb Hct Random Glucose Hgb A1c (Clinic) 8.7 H Prostate Specific Ag < 0.05 < 0.10 Total Testosterone 02/08/23 07/09/23 08/13/23 16:14 16:15 15:41 RBC 3.90 L Hgb 11.9 L Hct Random Glucose 157 H Hgb A1c (Clinic) 8.2 H 9.4 H Prostate Specific Ag < 0.10 Total Testosterone 01/04/24 05/30/24 10:15 12:51 RBC Hgb 11.5 L Hct 33.4 L Random Glucose 199 H Hgb A1c (Clinic) Prostate Specific Ag < 0.10 Total Testosterone 33 L [facility] Medical History (Updated 07/17/24 @ 07:42 by Julien Stacy PA-C) Skin lesion of cheek Type 2 diabetes mellitus with polyneuropathy Memory difficulties Prostate cancer Type 2 diabetes mellitus with polyneuropathy Hyperlipidemia LDL goal <100 Surgical History History of cataract surgery History of open reduction and internal fixation (ORIF) procedure Family History Father No problems noted. Mother FH: ovarian cancer Daughter Drowning, accidental Daughter Lupus Social History Household Members Other:: DAughter Housing: House Alcohol intake: former Patient Tobacco Use Status: Former Tobacco user e-Cigarette/Vaping Use: Never Used service: No Current occupational status: disabled Cognitive needs: Yes Hearing needs: No Vision needs: Yes Questionnaire PHQ-9 Over the last 2 weeks, how often have you been bothered by any of the following problems? 1. Little interest or pleasure in doing things: not at all 2. Feeling down, depressed, or hopeless: not at all 3. Trouble falling or staying asleep, or sleeping too much: not at all 4. Feeling tired or having little energy: not at all 5. Poor appetite or overeating: not at all 6. Feeling bad about yourself - or that you are a failure or have let yourself or your family down: not at all 7. Trouble concentrating on things, such as reading the newspaper or watching television: not at all 8. Moving or speaking so slowly that other people could have noticed. Or the opposite - being so fidgety or restless that you have been moving around a lot more than usual: not at all 9. Thoughts that you would be better off or of hurting yourself in some way: not at all Total score: 0 Depression Screening Interpretation: Negative Depression Screening Done: Yes 43800 - PHQ-9 Billing: Yes Source: Developed by Drs. Dev Thompson, Leila Saini, Glen Santiago and colleagues, with an educational rica from [employer]. Thrive Questionnaire Date Thrive assessed: 07/16/24 I am a: Patient What is your living situation today?: I have a steady place to live Within the past 12 months, did the food you bought not last and you didn't have the money to get more?: Never true Within the past 12 months, did you worry whether your food would run out before you got money to buy more?: Never true Do you have trouble paying for medicines?: No Do you have trouble getting transportation to medical appointments?: No Do you have trouble paying your heating and electricity bill?: No Do you have trouble taking care of your child, family member or friend?: No Do you have trouble with day-to-day activities such as bathing, preparing meals, shopping, managing finances, etc.?: No Are you currently unemployed and looking for a job?: No Are you interested in more education?: No Please select the resources that you would like help with: None Currently or been in a relationship where the following occur: No concerns reported THRIVE Score: 0 AUDIT C Alcohol Use Questionnaire (AUDIT-C) 1. How often do you have a drink containing alcohol?: Never 3. How often do you have six or more drinks on one occasion?: Never Total Score: 0 MARIANA-7 AMB Questionnaire MARIANA-7 Date MARIANA - 7 assessed: 07/16/24 Feeling nervous, anxious, or on edge: 0 = Not at all Not being able to stop or control worryin = Not at all Worrying too much about different things: 0 = Not at all Trouble relaxin = Not at all Being so restless that it is hard to sit still: 0 = Not at all Becoming easily annoyed or irritable: 0 = Not at all Feeling afraid as if something awful might happen: 0 = Not at all Total MARIANA-7 score (0-4 normal; 5-9 mild; 10-14 moderate; 15-21 severe): 0 Source: Developed by Drs. Dev Thompson, Leila Saini, Glen Santiago and colleagues, with an educational rica from [employer]. MARIANA-7 Assessment Billing MARIANA-7 Assessment Tool: MARIANA-7 Assessment 84679 Review of Systems Const Denies headache(s) Eyes Denies loss of vision ENT Reports dysphagia, Denies vertigo, Denies dizziness, Denies headache(s) and Denies sore throat Card Denies chest pain, Denies leg edema and Denies lightheadedness Resp Denies cough, Denies hemoptysis and Denies wheezing GI Denies abdominal pain, Denies melena, Denies constipation, Reports dysphagia, Denies dyspepsia, Denies diarrhea and Denies vomiting Denies dysuria, Denies urinary frequency and Denies urinary urgency Musc Denies arthralgias, Denies joint swelling, Denies numbness and Denies tingling Neuro Denies Abnormal speech present, Denies behavioral changes, Reports confusion, Denies vertigo, Denies dizziness, Denies headache(s), Denies loss of vision, Denies memory loss, Denies numbness and Denies tingling Psych Denies anxiety, Denies behavioral changes, Reports confusion, Denies depression, Denies memory loss and Denies panic attacks Abrahan/Lymph Denies easy bleeding and Denies easy bruising Aller/Immun Denies wheezing Physical exam (Primary Care) Vital Signs: Last Vital Signs Pulse 95 07/16/24 10:04 BP 110/62 07/16/24 10:04 Pulse Ox 94 07/16/24 10:04 Oxygen Delivery Method Room Air 07/16/24 10:04 BMI result Body Mass Index 29.5 Tobacco/Smoking Status: Tobacco use Status Tobacco use date assessed 07/16/24 07/16/24 10:10 Patient Tobacco Use Status Former Tobacco user 07/16/24 10:05 e-Cigarette/Vaping Use Never Used 07/16/24 10:05 PHQ-9: PHQ-9 Score PHQ-9: Total score 0 07/16/24 10:37 Depression Screening Interpretation: Negative Thrive Assessment: Date of Thrive Assessment Date Thrive assessed 07/16/24 07/16/24 10:10 Currently or been in a relationship where the following occur: No concerns reported Const General: healthy appearing, no acute distress, alert, awake and confusion Nutritional Appearance: well nourished Orientation/consciousness: oriented to person, oriented to place, oriented to time and confusion HENMT Ears: TM's normal bilaterally General nose exam: Normal nasal mucous membranes and turbinates present Eyes Conjunctivae: conjunctivae normal Sclerae: sclerae normal Pupils: Equal, round and reactive pupils present Neck Neck: Yes no lymphadenopathy and Yes no JVD Thyroid: Thyroid normal Carotids: no bruits Resp Effort & Inspection: normal respiratory effort and not tachypneic Auscultation: no crackles, no rales, no rhonchi and no wheezes Cardio Rate: regular rate Rhythm: regular rhythm Heart sounds: no murmurs and normal S1 and S2 GI Palpation (GI): Soft to palpation, nontender, no hepatomegaly and no splenomegaly Auscultation: normal bowel sounds Skin General skin exam: no rashes or lesions noted and dry skin Neuro General: oriented to person, oriented to place, oriented to time and confusion Cranial nerves: Yes Equal, round and reactive pupils present Speech: No Abnormal speech present Gait exam (Neuro): Normal gait present Motor exam (neuro): no tremor noted Extrem Right upper extremity: full ROM Left upper extremity: full ROM Right lower extremity: full ROM; no edema Left lower extremity: full ROM; no edema Psych Mental Status: mental status grossly normal Speech and movement: Normal speech and movement present Affect: normal affect Attitude: cooperative Thought process: Normal thought process present Office Procedures Flu Questionnaire Does the patient have a severe egg allergy?: No Does the patient have severe life threatening allergies?: No Does the patient have a fever or illness today?: No Has the patient ever had Guillain-[place] Syndrome?: No Has the patient ever had any past reaction to a flu shot?: No Immunizations Fluarix Triv [id number] (PF) 45 mcg (15 mcg x 3)/0.5 mL IM syringe Performing Provider: Julien Stacy PA-C [facility] [facility] [place] [facility] Administered by: SIGIFREDO Johns on 07/16/24 10:38 Dose Route Admin Location Dispensed Lot Number Expiration Date NDC Reservoir Caretaker 0.5 mL IM Left Deltoid 0.5 mL [id number] 01/26/25 [id number] [employer] VIS Given Date VIS Provided VIS Publication Date 07/16/24 Single Vaccine 21 Eligibility Eligibility Date Funding Source Not [facility] Eligible 07/16/24 Private Coding Level of Care Code Est Pt Level 4 (57411) Diagnoses Type 2 diabetes mellitus with polyneuropathy E11.42 Hyperlipidemia LDL goal <100 E78.5 Primary hypertension I10 Hypertension type: primary hypertension Dementia without behavioral disturbance, unspecified dementia type F03.90 Dementia behavioral disturbance: without behavioral disturbance Dementia type: unspecified type Oropharyngeal dysphagia R13.12 Dysphagia type: oropharyngeal phase Additional Codes MARIANA-7 Assessment Billing - MARIANA-7 Assessment Tool: MARIANA-7 Assessment 19448 ([id number]) PHQ-9 - 43398 - PHQ-9 Billing: Yes ([id number]) Assessment & Plan Assessment & Plan (1) Type 2 diabetes mellitus with polyneuropathy: Code(s): E11.42 - Type 2 diabetes mellitus with diabetic polyneuropathy Category: Medical Plan: Patient's diabetes has been suboptimally controlled. Family does report patient does not have great diet. They report blood sugars 3 to 400s on his glucose monitor. They are willing to restart insulin and GLP 1 for better glucose control. Will discontinue glipizide if he is able to start Trulicity (2) Hyperlipidemia LDL goal <100: Code(s): E78.5 - Hyperlipidemia, unspecified Category: Medical Plan: Patient continues with the use of atorvastatin 40 mg. Most recent lipid panel showing good control of his total cholesterol and LDL. Goal LDL to remain below 100 (3) HTN (hypertension): Code(s): I10 - Essential (primary) hypertension Category: Medical Qualifiers: Hypertension type: primary hypertension Qualified Code(s): I10 - Essential (primary) hypertension Plan: Patient's blood pressure acceptable today in office. Will continue his current dose of lisinopril with goal blood pressure to remain below 140/90 (4) Dementia: Code(s): F03.90 - Unspecified dementia, unspecified severity, without behavioral disturbance, psychotic disturbance, mood disturbance, and anxiety Category: Medical Qualifiers: Dementia behavioral disturbance: without behavioral disturbance Dementia type: unspecified type Qualified Code(s): F03.90 - Unspecified dementia without behavioral disturbance Plan: Then seems to have some progressing dementia. Family reports he is often very stubborn and does not want to go to doctor's appointments.. Continues with Aricept Patient has very good support by family at home takes seemingly good care of him. (5) Dysphagia: Code(s): R13.10 - Dysphagia, unspecified Category: Medical Qualifiers: Dysphagia type: oropharyngeal phase Qualified Code(s): R13.12 - Dysphagia, oropharyngeal phase Plan: As per HPI patient continues to have episodes dysphagia. Family does report having to do have a on him a few times over the last few months. They admit that he does slouch in his chair after eating. Will try for a barium swallow to evaluate for any esophageal ring or strictures. Will consider speech therapy for recommendations on diet. Orders: Orders FL barium swallow 07/16/24 R13.12 - Dysphagia, oropharyngeal phase Lipid Panel 07/16/24 E78.5 - Hyperlipidemia, unspecified Comprehensive [place]. Panel Fast 07/16/24 E11.42 - Type 2 diabetes mellitus with diabetic polyneuropathy Complete Blood Count no Diff 07/16/24 E11.42 - Type 2 diabetes mellitus with diabetic polyneuropathy Microalbumin, Random (w Creat) 07/16/24 E11.42 - Type 2 diabetes mellitus with diabetic polyneuropathy Influenza [id number] Immunization 07/16/24 Z23 - Encounter for immunization Medications: New dulaglutide (Trulicity) 0.75 mg (0.5 mL) subcut QWEEK 2 mL 1RF 4 weeks E11.42 - Type 2 diabetes mellitus with diabetic polyneuropathy insulin degludec (Tresiba FlexTouch U-100 insulin) 10 units (0.1 mL) subcut DAILY 3 mL 2RF 30 days E11.42 - Type 2 diabetes mellitus with diabetic polyneuropathy Refilled pen needle, diabetic (BD Ultra-Fine Lydia Pen Needle) 1 ea subcut DAILY 100 ea 2RF E11.42 - Type 2 diabetes mellitus with diabetic polyneuropathy Discontinued glipizide ER Discontinued Reason: Doctor's Order 2.5 mg PO DAILY 30 days 30 tabs 3RF E11.42 - Type 2 diabetes mellitus with diabetic polyneuropathy
--- OUTSIDE RECORDS SUMMARY | 2024-07-16 10:04 | XMS_ITS | Data Portability ---
Author Organization [place] [facility] [place] [facility] Address [address] [place] [id number] Care Team Providers Care Polisher Dial Name Role Phone SARAH MUSE Primary Care Provider HIM MILLICENT OTHER Assessment No assessment recorded. Plan of Treatment Reminders Order Date Submit Date Provider Last Modified By Organization Details Last Modified Time Details Appointments None recorded. Lab None recorded. Referral None recorded. Procedures None recorded. Surgeries None recorded. Imaging electrocard iogram [id number], [address] [place] [address], [id number], 15:33:36 Medication Orders None recorded. Patient TargetsNo targets recorded. Patient InstructionsNo instructions recorded. Reason for Referral None Reported. Results Created Date Observation Date Name Description Value Unit Range Abnormal Flag Note LastModifiedBy Organization Detail LastModifiedTime 04/18/20 23 04/18/2023 elect adela [email or web address] am No observ ation record ed. [email or web address] [facility] ed [address] [place] [address], [id number], 04/18/2023 15:33:19 Result Notes None recorded. Procedures Surgical History None recorded. Imaging Results Imaging Date Name Status LastModified by Organization Details LastModified Time 04/18/2023 electrocardiogram completed [id number], [id number], 04/18/2023 15:33:19 Procedure Notes None recorded. Medical Equipment None Reported. Medications Name Sig Start Date Stop Date Status Note LastModified by Organization Details LastModified Time medbox status USE DIRECTED active Not Available Not Available No t Available atorvastatin 40 mg tablet TAKE 1 TABLET BY MOUTH EVERY MORNING active Not Available Not Available No t Available ibuprofen 800 mg tablet TAKE 1 TABLET BY MOUTH THREE TIMES DAILY NEEDED FOR PAIN active Not Available Not Available No t Available donepezil 10 mg tablet TAKE 1 TABLET BY MOUTH AT BEDTIME active Not Available Not Available No t Available aspirin 81 mg tablet,delay ed release TAKE 1 TABLET BY MOUTH EVERY MORNING active Not Available Not Available No t Available acetaminophe n ER 650 mg tablet,exten ded release TAKE 1 TABLET BY MOUTH EVERY 8 HOURS NEEDED FOR PAIN active Not Available Not Available No t Available tamsulosin 0.4 mg capsule TAKE 1 CAPSULE BY MOUTH AT BEDTIME active Not Available Not Available No t Available metformin 1,000 mg tablet TAKE 1 TABLET BY MOUTH TWICE DAILY IN THE MORNING AND IN THE EVENING active Not Available Not Available No t Available lisinopril 10 mg tablet TAKE 1 TABLET BY MOUTH EVERY MORNING active Not Available Not Available No t Available Oyster Shell Calcium-Nicole min D3 500 mg-5 mcg (200 unit) tablet TAKE 1 TABLET BY MOUTH EVERY EVENING active Not Available Not Available No t Available mirtazapine 7.5 mg tablet TAKE 1 TABLET BY MOUTH AT BEDTIME active Not Available Not Available No t Available Trulicity 0.75 mg/0.5 mL subcutaneous pen injector INJECT ONE PEN (=0.75MG) SUBCUTANEOU SLY ONCE A WEEK DIRECTED active Not Available Not Available No t Available Vitals Date Recorded Heart rate Body temperature Respiratory rate Oxygen saturation Oxygen saturation in Arterial blood by Pulse oximetry Systolic blood pressure Diastolic blood pressure Provider Name and Address Organization Details Last Updated DateTime 3 90 /min 97.1 [degF] 16 /min 97 % 97 % 160 mm[Hg] 85 mm[Hg] Not Available [facility] - production 3 15:29:42 Social History None recorded. Functional Status None recorded. Mental Status None recorded. Family History Nothing Reported. Medical History No medical history recorded. Past Encounters Encounter ID Performer Location Encounter Start Date Encounter Closed Date Diagnosis/Indication Diagnosis SNOMED-CT Code Diagnosis ICD10 Code [id number] Andrew Salcedo MD [facility] - [facility] [address] [place] [phone] 04/18/2023 15:29:27 04/18/2023 23:12:54 Chest pain 24644361 R07.9 Health Concerns Section Related Observation LastModified by Organization [employer] [facility] LastModified Time None Recorded Concern Status LastModified by Organization Details LastModified Time None Recorded Advance Directives Directive None Recorded Payers Encounter Date Sequence Insurance Name Policy Number Policy Cotto Covered Member ID Cotto Member ID Guarantor Name 04/18/[address] [facility] - DOS ON OR AFTER 2022 - DUAL ELIGIBLE - [employer] AND ONE CARE (MEDICARE REPLACEMENT/ADV ANTAGE - HMO) Clemente Rajput [id number] Clemente Rajput Notes Date Note Type Note Provider Name and Address Organization Details Recorded Time 04/18/2023 text/html [facility] Nursing Assessment: Reason For Request: HTN Denies: Palpitations, feeling dizzy Chest pain, increased fatigue CHF history, increased swelling and edema Weakness/tachycard ia Chief Complaints: Hypertension PMH: Cancer, Diabetes Allergies: Unknown Comments: Verified identity / address Member dementia and HTN . BP now 180/90 , member c/o not feeling well. Member denying chest pain . Member takes lisinopril BID , only taken this AM but not PM one yet . Member has DM , BS was 244 but was right after breakfast. Member does not always complain Andrew Salcedo MD [address] [facility],[address], [place], [phone], [employer] 04/18/2023 15:33:48
== END 2024-07-16 10:46 | disposition home or self-care (01) ==
PROVIDERS: PCP Physician Assistant; Visit Provider Physician Assistant
DX: E11.42 Type 2 diabetes mellitus with diabetic polyneuropathy (principal); E78.5 Hyperlipidemia, unspecified; I10 Essential (primary) hypertension; F03.90 Unspecified dementia, unspecified severity, without behavioral disturbance, psychotic disturbance, mood disturbance, and anxiety; R13.12 Dysphagia, oropharyngeal phase

== ENCOUNTER 2024-07-16 11:04 | Outpatient (REF) | payer OTHER, SELFPAY ==
[2024-07-16 14:04] LABS: Prostate Specific Antigen < 0.10 ng/mL (<0.05-4.0)
== END 2024-07-16 11:05 | disposition home or self-care (01) ==
LOC: HO.10HDL 11:04
PROVIDERS: Visit Provider Urology
DX: Z12.5 Encounter for screening for malignant neoplasm of prostate (principal); C61 Malignant neoplasm of prostate; Z23 Encounter for immunization; E11.42 Type 2 diabetes mellitus with diabetic polyneuropathy; I10 Essential (primary) hypertension; E78.5 Hyperlipidemia, unspecified; F03.90 Unspecified dementia, unspecified severity, without behavioral disturbance, psychotic disturbance, mood disturbance, and anxiety; R13.12 Dysphagia, oropharyngeal phase; Z79.899 Other long term (current) drug therapy
CPT/HCPCS: 36415; 84153; 90471; 90656; 96127; 99212

== ENCOUNTER 2024-07-18 10:03 | Outpatient (REF) | payer OTHER, SELFPAY ==
--- NOTE | ~2024-07-18 | FL_ITS ---
EXAMINATION: XR FLUOROSCOPY UPPER GI WITH AIR CLINICAL INFORMATION: Dysphagia. COMPARISON: None TECHNIQUE: Fluoroscopic air contrast upper GI examination was performed utilizing standard techniques with thin and thick barium and effervescent granules. Numerous spot images were obtained. FINDINGS: Lateral cine images of the oropharynx and hypopharynx demonstrate normal swallow mechanism with normal epiglottic inversion and soft palate elevation. No tracheal penetration, glottic or subglottic aspiration identified. No nasopharyngeal reflux present. Hypopharyngeal structures appear normal without evidence of mass or diverticulum. There was no significant cricopharyngeal achalasia. There are anterior bridging osteophytes at C3-C5 that causes minimal posterior indentation of the cervical esophagus. Dual and single contrast images of the esophagus demonstrate normal caliber, contour, and mucosal pattern. No evidence of stricture, mass, or ulcerations identified. Esophageal peristalsis is mildly disorganized. A small type I hiatal hernia is present. Mild gastroesophageal reflux is seen in the distal esophagus. Dual contrast and single contrast images of the stomach demonstrated a normal contour. Evaluation the gastric mucosa is limited due to underdistention of the stomach from poor tolerance of effervescent granules. No obvious masses or ulcerations are seen. Contrast freely passed into the gastric antrum and duodenal bulb without delay. Single and air-contrast images of the duodenal bulb demonstrate no abnormality. The duodenal sweep has a normal appearance, course, and mucosal fold appearance. The imaged proximal jejunum has a normal fold pattern and caliber. FLUOROSCOPY TIME: 3 minutes 58 seconds Number of Spot Images: 8 Number of Cine: 11 DOSE AREA PRODUCT: 2322 uGy-m2 (microgray-meter squared) FL/FL barium swallow with air IMPRESSION: 1. 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 These are unlikely contributing to the patient's symptoms. 2. Mildly disorganized esophageal peristalsis. 3. Small type I hiatal hernia with mild gastroesophageal reflux. 4. Limited evaluation of the gastric mucosa due to underdistention of stomach from poor tolerance of effervescent granules. This procedure was performed by Clemente Reddy PA-C, and supervised by Dr. Ch Electronically signed by: Mane Ch MD 07/18/2024 04:00 PM [facility] [place]
--- OUTSIDE RECORDS SUMMARY | 2024-07-18 10:08 | XMS_ITS | Data Portability ---
Author Organization [employer] [place], [place] - On license of [facility] Address [address] [place] [id number] Care Team Providers Care Prevocational/Rehabilitation Counselor Name Role Phone SARAH MUSE Primary Care Provider [phone] HIM MILLICENT OTHER Assessment No assessment recorded. Plan of Treatment Reminders Order Date Submit Date Provider Last Modified By Organization Details Last Modified Time Details Appointments None recorded. Lab None recorded. Referral None recorded. Procedures None recorded. Surgeries None recorded. Imaging electrocard iogram [id number], [address] [place] [address], [id number], 15:33:36 Medication Orders None recorded. Patient TargetsNo targets recorded. Patient InstructionsNo instructions recorded. Reason for Referral None Reported. Results Created Date Observation Date Name Description Value Unit Range Abnormal Flag Note LastModifiedBy Organization Detail LastModifiedTime 04/18/2004/18/2023 elect adela ballesterosgr am No observ ation record ed. [email or web address] [facility] ed [address] [place] [address], [phone], 04/18/2023 15:33:19 Result Notes None recorded. Procedures Surgical History None recorded. Imaging Results Imaging Date Name Status LastModified by Organization Details LastModified Time 04/18/2023 electrocardiogram completed [email or web address], [phone], 04/18/2023 15:33:19 Procedure Notes None recorded. Medical [...] Diagnosis/Indication Diagnosis SNOMED-CT Code Diagnosis ICD10 Code [id number] Andrew Salcedo MD [address] - [address] [address] [place] [address] 04/18/2023 15:29:27 04/18/2023 23:12:54 Chest pain [id number] R07.9 Health Concerns Section Related Observation LastModified by Organization [employer] LastModified Time None Recorded Concern Status LastModified by Organization Details LastModified Time None Recorded Advance Directives Directive None Recorded Payers Encounter Date Sequence Insurance Name Policy Number Policy Cotto Covered Member ID Cotto Member ID Guarantor Name 04/18/2023 1 [facility] - DOS ON OR AFTER 2022 - DUAL ELIGIBLE - NURSING HOME OPTIONS AND ONE CARE (MEDICARE REPLACEMENT/ADV ANTAGE - HMO) Clemente Rajput [id number] Clemente Rajput Notes Date Note Type Note [...] not always complain Andrew Salcedo MD [address] [facility],[address], [place], [address], [employer] 04/18/2023 15:33:48
== END 2024-07-18 10:04 | disposition home or self-care (01) ==
LOC: HO.XRAY 10:03
PROVIDERS: PCP Physician Assistant; Visit Provider Physician Assistant
DX: R13.12 Dysphagia, oropharyngeal phase (principal)
CPT/HCPCS: 74221

== ENCOUNTER → 2024-07-18 10:06 | Outpatient (BNV) | payer OTHER, SELFPAY | PROVIDERS: PCP Physician Assistant; Visit Provider Physician Assistant Surgical | DX: R13.10 Dysphagia, unspecified (principal); K21.9 Gastro-esophageal reflux disease without esophagitis; R19.2 Visible peristalsis | CPT/HCPCS: 74221 ==

== ENCOUNTER 2024-07-22 11:38 | Outpatient (AMB) | payer OTHER, SELFPAY ==
--- NOTE | 2024-07-22 11:38 | MHC.OFFVIS ---
Intake Visit Reasons: 6m/PSA(set) Intake Note: Patient is present for 6M/PSA Urology Medication:TAMSULOSIN Antibiotic Allergy:NONE Blood Thinner:ASPIRIN Food Production Supervisor Required: No Allergies No Known Allergies [No Known Allergies*] Allergy (Verified 07/22/24 11:39) HPI Comments Details: Clemente is a pleasant male. He is a patient of Dr. Christensen. He is seen for the following urologic condition. - prostate cancer Telemedicine Evaluation 15 min Consultation [facility] Macie Video attempted Georgian translation provided by qualified spanish medical interpreter Discussion with Clemente and his daughter La PSA remaining in range Six month follow-up PSA Prostate cancer Group 4 - EXRT plus hormones diagnosed 2018 - last GnRH February 2021 Prostate cancer diagnosed by Dr. Hoover 2018 Original pathology [place] 6 and Anurag 8 Initial treatment external beam radiation with 2 years of hormone therapy GnRH and Casodex Completed finasteride till 02/17 PSA - 08/19 <0.1, 03/19 <0.1, 06/19 PSA <0.1, T 18, 10/24 <0.1 T11, 02/17 <0.1 14, 09/21 <0.1, 01/19 <0.1, 07/21 <0.1, 01/20 <0.1, 07/22 <0.1 Continue to follow-up every 6 months with lab work [facility] Medical History (Updated 07/17/24 @ 07:42 by Julien Stacy PA-C) Skin lesion of cheek Type 2 diabetes mellitus with polyneuropathy Memory difficulties Prostate cancer Type 2 diabetes mellitus with polyneuropathy Hyperlipidemia LDL goal <100 Surgical History History of cataract surgery History of open reduction and internal fixation (ORIF) procedure Family History Father No problems noted. Mother FH: ovarian cancer Daughter Drowning, accidental Daughter Lupus Social History Household Members Other:: DAughter Housing: House Alcohol intake: former Patient Tobacco Use Status: Former Tobacco user e-Cigarette/Vaping Use: Never Used service: No Current occupational status: disabled Cognitive needs: Yes Hearing needs: No Vision needs: Yes Review of Systems Const All systems reviewed & are unremarkable except as noted in HPI and below Reports no additional complaints Resp Reports no additional complaints GI Reports no additional complaints Reports as per HPI Musc Reports no additional complaints Physical Exam Telemedicine evaluation Appropriate responses Regular breathing rate and rhythm HEENT Head: Yes normal to inspection Ears: hearing grossly normal bilaterally Eyes General: appearance normal, both eyes and all related structures Neck Neck: Yes normal visual inspection Chest Chest palpation & inspection: normal inspection of the chest Resp Effort & Inspection: normal respiratory effort and able to speak in complete sentences Telehealth Telehealth Telehealth Platform: [facility] Location of provider rendering services: practice address Location of patient: address on file Patient Identification confirmed using: Name, : Yes Telehealth method: video Patient verbally consented to treatment: Yes Patient verbally consented to billing insurance company: Yes Patient informed of any privacy concerns related to visit: Yes Minutes spent on Phone/Video with Pt.: 15 Assessment & Plan Assessment & Plan (1) Prostate cancer: Comment: High-grade 2019 external beam radiation with hormone therapy Code(s): C61 - Malignant neoplasm of prostate Category: Medical (2) Hematuria: Code(s): R31.9 - Hematuria, unspecified Category: Medical Plan G Code G2211 Has been applied in accordance with CMS guidelines ( Medicare and Medicaid programs; [place] 2023 Payment Policies ) to convey the inherent complexity in ongoing patient care within the urology clinic. This deliberate utilization aligns with the visits complexity associated with medical care services serving as a focal point for necessary healthcare, addressing the patient's singular serious or complex condition. This judicious use ensure was appropriate reimbursement, especially in the context of managing such conditions within our specialized, longitudinal urologic practice. This patient has a complex and chronic urologic condition that requires longitudinal follow-up. CMS, Medicare and Medicaid programs; [place] 2023 Payment Policies Fed. Reg 88 (36): 64404-[address]571 (Mar.052022) 6m f/u PSA Orders: Orders Prostate Specific Antigen 6 Months C61 - Malignant neoplasm of prostate Patient Instructions: Imaging studies, laboratory and physical exam results were discussed and reviewed in detail. No major barriers to patient understanding were identified. An opportunity to ask questions regarding the treatment plan was provided. All questions were answered. The patient expressed understanding and agreement with the above treatment plan. The patient is aware they should contact our office by phone for worsening of their current condition or the appearance of new urologic symptoms. Compliance is encouraged with any medications and followup testing that is ordered. It is a privilege to participate in the urologic care of your patient. If you have any questions or concerns regarding treatment for the above conditions, or other urologic issues, please do not hesitate to contact me. The office telephone contact is [phone]. This note is constructed using voice recognition software. While every effort has been made to ensure accuracy piano tuner errors may have been included. Yours sincerely, Dr Deuce Oropeza MD, TR[facility] - Urology Providers of Expert, Compassionate Care for the Genitourinary System Coding Level of Care Code Tele Est Pt Level 3 (15184) Complex EM visit Add On G2211 Diagnoses Prostate cancer C61 Hematuria R31.9
--- OUTSIDE RECORDS SUMMARY | 2024-07-22 11:40 | XMS_ITS | Data Portability ---
Author Organization [employer] [place] in - [facility] Address [address] [place] [id number] Care Team Providers Care Equipment Specialist Name Role Phone SARAH MUSE Primary Care Provider [phone] HIM MILLICENT OTHER Assessment No assessment recorded. Plan of Treatment Reminders Order Date Submit Date Provider Last Modified By Organization Details Last Modified Time Details Appointments None recorded. Lab None recorded. Referral None recorded. Procedures None recorded. Surgeries None recorded. Imaging electrocard iogram [email or web address], [address] [place] [address], [phone], 15:33:36 Medication Orders None recorded. Patient TargetsNo targets recorded. Patient InstructionsNo instructions recorded. Reason for Referral None Reported. Results Created Date Observation Date Name Description Value Unit Range Abnormal Flag Note LastModifiedBy Organization Detail LastModifiedTime 04/18/2004/18/2023 elect adela ballesterosgr am No observ ation record ed. [email or web address] [facility] ed [address] [place] [address], [phone], 04/18/2023 15:33:19 Result Notes None recorded. Procedures Surgical History None recorded. Imaging Results Imaging Date Name Status LastModified by Organization Details LastModified Time 04/18/2023 electrocardiogram completed [id number], [phone], 04/18/2023 15:33:19 Procedure Notes None recorded. Medical [...] Diagnosis/Indication Diagnosis SNOMED-CT Code Diagnosis ICD10 Code [id number] Andrew Salcedo MD Main - [facility] [address] [place] [address] 04/18/2023 15:29:27 04/18/2023 23:12:54 Chest pain 44188260 R07.9 Health Concerns Section Related Observation LastModified by Organization Sim santa LastModified Time None Recorded Concern Status LastModified by Organization Details LastModified Time None Recorded Advance Directives Directive None Recorded Payers Encounter Date Sequence Insurance Name Policy Number Policy Cotto Covered Member ID Cotto Member ID Guarantor Name 04/18/2023 1 [facility] - DOS ON OR AFTER 2022 - DUAL ELIGIBLE - SNF OPTIONS AND ONE CARE (MEDICARE REPLACEMENT/ADV ANTAGE - HMO) Clemente Rajput [id number] Clemente Rajput Notes Date Note Type Note [...] not always complain Andrew Salcedo MD [address] [facility],[address], [place], [address], [employer] 04/18/2023 15:33:48
== END 2024-07-22 12:53 | disposition home or self-care (01) ==
LOC: HO.HUSH 11:38
PROVIDERS: PCP Physician Assistant; Visit Provider Urology
DX: C61 Malignant neoplasm of prostate (principal); R31.9 Hematuria, unspecified
CPT/HCPCS: 99213; G2211

== ENCOUNTER 2025-01-20 11:56 | Outpatient (REF) | payer OTHER, SELFPAY ==
--- OUTSIDE RECORDS SUMMARY | 2025-01-20 13:34 | XMS_ITS | Data Portability ---
Author Organization [employer] [facility], [facility] Address [address] [place] [address] Care Team Providers Care Telecommunications Cable Jointer Name Role Phone SARAH MUSE Primary Care Provider HIM CCA OTHER Assessment Encounter Date Assessment Date Assessment LastModified by Organization Details LastModified Time 08/06/2024 08/06/2024 I provided real -time medical direction via phone for this encounter and was available for additional phone-based assistance as needed. I have reviewed and agree with the Assessment and Plan as documented by the Stone Sandblaster. Patient given the opportunity to ask questions. Our service contacted for an assessment of: Insomnia As per above, patient with chronic issue of insomnia. Also has underlying dementia. Staff found him sitting up in his chair in the middle of the night. He has no complaints. Per ibm websphere commerce developer on the scene he has stable vitals and is afebrile. Staff deny any new issues other than the insomnia. Impression: Insomnia Plan: Will have staff continue to promote good sleep hygiene. Try to stay awake during the day and sit by a window. Avoid for us and lighting. Additionally will contact his team to see if he is a candidate for any longer term medications or what has been tried in the past. He may periodically benefit from melatonin. Allergies: Reviewed PCP f/u: We discussed the diagnostic uncertainty of home visits and the risk associated with this. In this case, the patient and I felt this to be an acceptable and reasonable amount of risk given the benefit of avoiding an ED visit. We discussed the need to seek care urgently/emergentl y in the setting of any new or worsening serious symptoms, particularly fever chills lightheadedness altered mental status [email or web address] Not available 08/06/2024 16:10:32 Plan of Treatment Reminders Order Date Submit Date Provider Last Modified By Organization Details Last Modified Time Details Appointments None recorded. Lab None recorded. Referral None recorded. Procedures None recorded. Surgeries None recorded. Imaging electrocard iogram 2022 023 [email or web address] [facility], [address] [place], [address] 15:33:36 Medication Orders None recorded. Patient TargetsNo targets recorded. Patient InstructionsNo instructions recorded. Reason for Referral None Reported. Results Created Date Observation Date Name Description Value Unit Range Abnormal Flag Note LastModifiedBy Organization Detail LastModifiedTime 04/18/2004/18/2023 iesha weller am No observ ation record ed. [email or web address] [facility] ed [address] [place], [address] 04/18/2023 15:33:19 Result Notes None recorded. Medical Equipment None Reported. Allergies No known drug allergies Medications Name Sig Start Date Stop Date [...] Available No t Available Vitals Date Recorded Body weight Respiratory rate Heart rate Body height Oxygen saturation Oxygen saturation in Arterial blood by Pulse oximetry Body temperature Systolic blood pressure Diastolic blood pressure Provider Name and Address Organization Details Last Updated DateTime 5 72179.4 g 14 /min 80 /min 167.64 cm 98 % 98 % 98 [degF] 136 mm[Hg] 72 mm[Hg] Not Available [employer] - production 5 16:07:42 Date Recorded Heart rate Body temperature Respiratory rate Oxygen saturation Oxygen saturation in Arterial blood by Pulse oximetry Systolic blood pressure Diastolic blood pressure Provider Name and Address Organization Details Last Updated DateTime 3 90 /min 97.1 [degF] 16 /min 97 % 97 % 160 mm[Hg] 85 mm[Hg] Not Available [employer] 3 15:29:42 Social History None recorded. Functional Status None recorded. Mental Status None recorded. Family History Nothing Reported. Medical History No medical history recorded. Past Encounters Encounter ID Performer Location Encounter Start Date Encounter Closed Date Diagnosis/Indication Diagnosis SNOMED-CT Code Diagnosis ICD10 Code Diagnosis Note [id number] Andrew Salcedo MD Main - [facility] [address] [place] [phone] 04/18/2023 15:29:27 04/18/2023 23:12:54 Chest pain 71499178 R07.9 88yo man with dementia presents after an episode this morning when he clutched his chest for one second, then all symptoms resolved. His blood pressures is typically 140s systolic but today has been 160s-180s systolic. Since the episode 6h ago, he has had no symptoms and has been acting normally. Family is not 100% sure if he's been taking his lisinopril . No fevers, chills, cough, shortness of breath.He is well appearing on exam. ECG shows no ST elevation. It is hard to know for sure what happened. However, presentati on is not consistent with a sinister cause such as ACS, PE, or aortic dissection given that he has no symptoms at this point. He doesn't necessaril y need more blood pressure medication at this age. [id number] Lili Bullock MD Main - [facility] [address] [place] [phone] 08/06/2024 16:07:39 08/06/2024 17:55:22 Insomnia [id number] G47.00 Health Concerns Section Related Observation LastModified by Organization Detai ls LastModified Time None Recorded Concern Status LastModified by Organization Details LastModified Time None Recorded Advance Directives Directive None Recorded Payers Insurance Date Sequence Insurance Name Policy Number Policy Cotto Covered Member ID Cotto Member ID Guarantor Name 08/06/[address] [facility] - DOS ON OR AFTER 2022 - DUAL ELIGIBLE - NURSING HOME OPTIONS AND ONE CARE (MEDICARE REPLACEMENT/ADV ANTAGE - HMO) Clemente Iversonnte [id number] Clemente Rajput Notes Date Note Type Note Provider Name and Address Organization Details Recorded Time 04/18/2023 text/html [facility] Nursing Assessment: Reason For Request: HTN Denies: Palpitations, feeling dizzy Chest pain, increased fatigue CHF history, increased swelling and edema Weakness/tachycardia Chief Complaints: Hypertension PMH: Cancer, Diabetes Allergies: [...] does not always complain Andrew Salcedo MD [address] [place] [address],[address], [place], [address], [employer] 04/18/2023 15:33:48 08/06/2024 text/html [facility] Nurse Triage Notes (Randy Tenorio - RN): Denies: Worst Headache of life New onset of vision loss Sudden onset -unilateral weakness/gait disturbance Fall with head strike and altered LOC New onset of Slurred speech or difficulty finding words Sudden Mental status changes Head pain with fever chills and neck pain Seizure activity Chief Complaints: Altered mental status PMH: Cancer, Dementia (e.g., Alzheimer's Disease), Diabetes Mellitus Type 2 PMH Reviewed at 08/06/2024 - 11: Allergies Reviewed at 08/06/2024 - 11: Comments: Rotor Casting Machine Setup Operator verified the patient's name//address and phone number. Pt's daughter calling reporting pt is not sleeping well for the last two weeks. Daughter reports pt has hx of dementia & diabetes. Daughter reports pt seems lost at home. Daughter reports pt does not want to go to the hospital so she is requesting in home visit. Daughter reports pt c/o lightheadedness after using the bathroom. Glucose today is 158, daughter is making pt a late breakfast at time of call. Education provided on the response time and the patient was advised to monitor reported s/s and seek emergency treatment if needed -Shital Tenorio RN Stone Sandblaster Organization Information for Singh Reddy [facility] Legal Name: [facility] Address: [address] [place] [address], [place] [address], Telecommunications Facility Examiner: Andreas Huff MD [facility] No.: [id number] Stone Sandblaster POC Test Results from Singh Reddy Blood Glucose Measurement (13:35:18) Blood Glucose: 189 mg/dL ..................... ..................... ..................... ..................... ..................... ..................... ............... Stone Sandblaster Note From Singh Reddy: Patient alert, in bathroom on arrival. Patient walks with assistance evenly. Patient caregivers called due to concerns of insomnia, wandering around at night times two weeks. Daughter reports patient was found in recliner this morning, staring at ceiling. Patient complained of dizziness after. Daughter reports patient took aspirin at that time. Patient says he felt better about 20 minutes later. Patient denies nausea or pain right now. Patient states I feel fine . Caregivers report, normal intake, elimination, and appetite. Caregivers report, patient may give unreliable answers. Patient, pink, warm, dry, no cough noted during visit, negative pupils equal and reactive to light. Negative increased work of breathing, stroke, scale negative, lung sounds clear, patient speaks full sentences. Negative CVA tenderness. Abdomen soft non tender no edema noted. Good skin turgor. [facility] advises follow up with PCP to inquire about further testing or sleep aids. Supportive care discussed. Red flags patient education discussed. Caregivers demonstrate understanding of care and plan. ..................... ..................... ..................... ..................... ..................... ..................... ............... [facility] Consulted: Lili Bullock ..................... ..................... ..................... ..................... ..................... ..................... ............... Disposition: Fulfilled Lili Bullock MD [address] [facility],[address], [place], [address], [facility] 08/06/2024 16:10:40
[2025-01-20 13:45] LABS: Prostate Specific Antigen < 0.10 ng/mL (<0.05-4.0)
== END 2025-01-20 11:57 | disposition home or self-care (01) ==
LOC: HO.10HDL 11:56
PROVIDERS: Visit Provider Urology
DX: C61 Malignant neoplasm of prostate (principal); Z12.5 Encounter for screening for malignant neoplasm of prostate
CPT/HCPCS: 36415; 84153

== ENCOUNTER 2025-01-21 10:28 | Outpatient (AMB) | payer OTHER, SELFPAY ==
--- NOTE | 2025-01-21 10:29 | MHC.OFFVIS ---
Intake Visit Reasons: 6m/PSA 010 910 0005- for tele, coal picker Intake Note: Patient is present for 6M/PSA Urology Medication:TAMSULOSIN Antibiotic Allergy:NONE Blood Thinner:ASPIRIN Street Light Servicer Required: Yes Allergies No Known Allergies (No Known Allergies*) Allergy (Verified 01/21/25 10:30) HPI Comments Details: Clemente is a pleasant male. He is a patient of Dr. Christensen. He is seen for the following urologic condition. - prostate cancer Telemedicine Evaluation 15 min Consultation Consult A Doctor Macie Video attempted Lao translation provided by qualified director medical writing Discussion with Clemente and his daughter La PSA remaining in range Six month follow-up PSA Prostate cancer Group 4 - EXRT plus hormones diagnosed 2018 - last GnRH February 2021 Prostate cancer diagnosed by Dr. Hoover 2018 Original pathology Anurag 6 and Anurag 8 Initial treatment external beam radiation with 2 years of hormone therapy GnRH and Casodex Completed finasteride till 02/17 PSA - 08/19 <0.1, 03/19 <0.1, 06/19 PSA <0.1, T 18, 10/24 <0.1 T11, 02/17 <0.1 14, 09/21 <0.1, 01/19 <0.1, 07/21 <0.1, 01/20 <0.1, 07/22 <0.1, 01/21 <0.1 Continue to follow-up every 6 months with lab work [facility] Medical History (Updated 09/04/24 @ 12:29 by Julien Stacy PA-C) Skin lesion of cheek Type 2 diabetes mellitus with polyneuropathy Memory difficulties Prostate cancer Type 2 diabetes mellitus with polyneuropathy Hyperlipidemia LDL goal <100 Surgical History History of cataract surgery History of open reduction and internal fixation (ORIF) procedure Family History Father No problems noted. Mother FH: ovarian cancer Daughter Drowning, accidental Daughter Lupus Social History Household Members Other:: DAughter Housing: House Alcohol intake: former Patient Tobacco Use Status: Former Tobacco user e-Cigarette/Vaping Use: Never Used service: No Current occupational status: disabled Cognitive needs: Yes Hearing needs: No Vision needs: Yes Review of Systems Const All systems reviewed & are unremarkable except as noted in HPI and below Reports no additional complaints Resp Reports no additional complaints GI Reports no additional complaints Reports as per HPI Musc Reports no additional complaints Physical Exam Telemedicine evaluation Appropriate responses Regular breathing rate and rhythm HEENT Head: Yes normal to inspection Ears: hearing grossly normal bilaterally Eyes General: appearance normal, both eyes and all related structures Neck Neck: Yes normal visual inspection Chest Chest palpation & inspection: normal inspection of the chest Resp Effort & Inspection: normal respiratory effort and able to speak in complete sentences Telehealth Telehealth Telehealth Platform: Consult A Doctor Location of provider rendering services: practice address Location of patient: address on file Patient Identification confirmed using: Name, : Yes Telehealth method: video Patient verbally consented to treatment: Yes Patient verbally consented to billing insurance company: Yes Patient informed of any privacy concerns related to visit: Yes Assessment & Plan Assessment & Plan (1) Prostate cancer: Comment: High-grade 2019 external beam radiation with hormone therapy Code(s): C61 - Malignant neoplasm of prostate Category: Medical Plan Six-month follow-up PSA office Orders: Orders Prostate Specific Antigen 6 Months C61 - Malignant neoplasm of prostate Patient Instructions: This note is constructed using voice recognition software. While every effort has been made to ensure accuracy navy fighter pilot errors may have been included. Imaging studies, laboratory and physical exam results were discussed and reviewed in detail. No major barriers to patient understanding were identified. An opportunity to ask questions regarding the treatment plan was provided. All questions were answered. The patient expressed understanding and agreement with the above treatment plan. The patient is aware they should contact our office by phone for worsening of their current condition or the appearance of new urologic symptoms. Compliance is encouraged with any medications and followup testing that is ordered. It is a privilege to participate in the urologic care of your patient. If you have any questions or concerns regarding treatment for the above conditions, or other urologic issues, please do not hesitate to contact me. The office telephone contact is [phone]. Sincerely, Dr Deuce Oropeza MD, [facility] - Urology Compassionate Specialist Care for the Genitourinary System Coding Level of Care Code Tele Est Pt Level 3 (04901) Complex EM visit Add On G2211 Diagnoses Prostate cancer C61
== END 2025-01-21 11:17 | disposition home or self-care (01) ==
LOC: HO.HUSH 10:28
PROVIDERS: PCP Physician Assistant; Visit Provider Urology
DX: C61 Malignant neoplasm of prostate (principal)
CPT/HCPCS: 99213; G2211

== ENCOUNTER 2025-05-04 14:09 | Outpatient (AMB) | payer OTHER, SELFPAY ==
--- NOTE | 2025-05-04 14:24 | A.OFFPC_ITS ---
Vital Signs 05/04/25 14:26 Height 5 ft 6 in Weight 186 lb 2 oz BMI 30.0 BP 122/75 Blood Pressure Location Lt brachial Position Sitting Pulse 99 Pulse Source Pulse Oximeter Temp 97.1 F Temp Source Temporal Artery Scan Pulse Oximetry (%) 95 Oxygen Delivery Method Room Air Intake Visit Reasons: Follow Up Intake Note: Patient is here to follow up on DM, HTN, HLD. Tab Builder Required: Yes Tab Builder Language: Deaf/Hard Of Hearing Specialist Name: Beatrice (grand daughter) Information Interpreted: non-clinical & clinical (pt declien translation prefer granddaughter to translate) Book Cutter: Present Accompanied by: Grand Child Allergies No Known Allergies (No Known Allergies*) Allergy (Verified 05/04/25 14:38) Medication List - Last Reconciled 05/04/25 by Julien Stacy PA-C aspirin 81 mg PO QAM Held on 08/13/23. Instructions: Doctor's Order atorvastatin 40 mg PO QAM blood pressure monitor (Blood Pressure Kit) As directed blood-glucose,virtualization architect,cont (FreeStyle Aleksandra 3 [place]) As directed calcium carbonate-vitamin D3 500 mg-5 mcg (200 unit) (Oyster Shell Calcium- Vitamin D3) 1 tab PO QAM 90 days dimethicone 12.5% (Hydraguard-D) 1 appl topical DAILY 30 days donepezil 10 mg PO BEDTIME dulaglutide (Trulicity) 0.75 mg (0.5 mL) subcut QWEEK 4 weeks flash glucose scanning reader As directed flash glucose sensor (FreeStyle Aleksandra 2 Sensor kit) As directed furosemide 10 mg (1/2 x 20 mg) PO DAILY 14 days ibuprofen 800 mg PO TID PRN 30 days insulin degludec (Tresiba FlexTouch U-100 insulin) 10 units (0.1 mL) subcut DAILY 30 days lidocaine 4% 1 patch topical DAILY PRN lisinopril 10 mg PO QAM metformin 1,000 mg PO BID 90 days mirtazapine 7.5 mg PO BEDTIME 90 days pen needle, diabetic 1 ea subcut DAILY tamsulosin 0.4 mg PO BEDTIME 90 days [washable bedpads As directed] Tobacco use date assessed: 05/04/25 Fall risk assessment: No Falls in past year Last assessed Fall Risk: 05/04/25 Dental Screening Dental Screen Date: 05/04/25 Did you have a dental visit in the last 12 months?: No Did you have a dental problem in the last 6 months where you did not have access to dental care?: No Was dental information given to patient?: No HPI Follow Up HPI Details Patient is an 89 -year-old male here today for a f/u visit. . . His daughter is giving the majority of his history. ? Patient's past medical history significant for hypertension, dementia, type 2 diabetes, prostate cancer. Concerns--> The patient experiences arthritis, which limits mobility and contributes to a sedentary lifestyle. He uses Tylenol for pain management due to concerns about bleeding risks associated with NSAIDs. ? .. .. HTN: Blood pressure acceptable today in office.? Continues on lisinopril with good effect. ? .. ? Diabetes type 2: Has not follow up with endocrinology in quite some time. Today family worried about patient's blood sugars at the been in 200-300 range according to their CGM. Today's A1c at 10 He has been fairly consistent with Tresiba daily and Trulicity weekly. Family reports Clemente often snacking on sugar and carbohydrates. PLAN: Will increase his Tresiba dose to 20 units and increase also has Trulicity dose to 1.5 weekly. ?. ? .. ? Prostate cancer: Patient is followed by Urology and is currently on chemotherapy. Recent PSAs have been undetectable. Patient denies any urinary symptoms. Dementia: Patient does get a lot of help at home with his family. He does not have any negative behaviors. Cognitive decline is noted, with the patient experiencing memory regression and repetitive speech patterns. He is also experiencing insomnia, characterized by poor nighttime sleep and excessive daytime sleepiness. [facility] Medical History (Updated 09/04/24 @ 12:29 by Julien Stacy PA-C) Skin lesion of cheek Type 2 diabetes mellitus with polyneuropathy Memory difficulties Prostate cancer Type 2 diabetes mellitus with polyneuropathy Hyperlipidemia LDL goal <100 Surgical History History of cataract surgery History of open reduction and internal fixation (ORIF) procedure Family History Father No problems noted. Mother FH: ovarian cancer Daughter Drowning, accidental Daughter Lupus Social History Household Members Other:: DAughter Housing: House Alcohol intake: former Patient Tobacco Use Status: Former Tobacco user e-Cigarette/Vaping Use: Never Used Second Hand Smoke Exposure: Yes service: No Current occupational status: disabled Cognitive needs: Yes (Walker) Hearing needs: No Vision needs: No Questionnaire PHQ-9 Over the last 2 weeks, how often have you been bothered by any of the following problems? 1. Little interest or pleasure in doing things: not at all 2. Feeling down, depressed, or hopeless: not at all 3. Trouble falling or staying asleep, or sleeping too much: nearly every day 4. Feeling tired or having little energy: more than half the days 5. Poor appetite or overeating: nearly every day 6. Feeling bad about yourself - or that you are a failure or have let yourself or your family down: not at all 7. Trouble concentrating on things, such as reading the newspaper or watching television: not at all 8. Moving or speaking so slowly that other people could have noticed. Or the opposite - being so fidgety or restless that you have been moving around a lot more than usual: not at all 9. Thoughts that you would be better off or of hurting yourself in some way: not at all Total score: 8 Depression Screening Interpretation: Positive Depression Screening Follow-up: Existing condition Depression Screening Done: Yes 03310 - PHQ-9 Billing: Yes Source: Developed by Drs. Dev Thompson, Leila Saini, Glen Santiago and colleagues, with an educational rica from [employer]. Thrive Questionnaire Date Thrive assessed: 12/23/24 I am a: Parent/Caregiver What is your living situation today?: I have a steady place to live Within the past 12 months, did the food you bought not last and you didn't have the money to get more?: Never true Within the past 12 months, did you worry whether your food would run out before you got money to buy more?: Never true Do you have trouble paying for medicines?: No Do you have trouble getting transportation to medical appointments?: No Do you have trouble paying your heating and electricity bill?: No Do you have trouble taking care of your child, family member or friend?: No Do you have trouble with day-to-day activities such as bathing, preparing meals, shopping, managing finances, etc.?: Yes Are you currently unemployed and looking for a job?: I choose not to answer this question Are you interested in more education?: No Please select the resources that you would like help with: None Currently or been in a relationship where the following occur: No concerns reported THRIVE Score: 0 AUDIT C Alcohol Use Questionnaire (AUDIT-C) 1. How often do you have a drink containing alcohol?: Never Total Score: 0 MARIANA-7 AMB Questionnaire MARIANA-7 Date MARIANA - 7 assessed: 05/04/25 Feeling nervous, anxious, or on edge: 0 = Not at all Not being able to stop or control worryin = Not at all Worrying too much about different things: 0 = Not at all Trouble relaxin = Not at all Being so restless that it is hard to sit still: 0 = Not at all Becoming easily annoyed or irritable: 0 = Not at all Feeling afraid as if something awful might happen: 0 = Not at all Total MARIANA-7 score (0-4 normal; 5-9 mild; 10-14 moderate; 15-21 severe): 0 Source: Developed by Drs. Dev Thompson, Leila Saini, Glen Santiago and colleagues, with an educational rica from [employer]. MARIANA-7 Assessment Billing MARIANA-7 Assessment Tool: MARIANA-7 Assessment [id number] Review of Systems Const Denies headache(s) Eyes Denies loss of vision ENT Denies vertigo, Denies dizziness, Denies headache(s) and Denies sore throat Card Denies chest pain, Denies leg edema and Denies lightheadedness Resp Denies cough, Denies hemoptysis and Denies wheezing GI Denies abdominal pain, Denies melena, Denies constipation, Denies diarrhea and Denies vomiting Denies dysuria, Denies urinary frequency and Denies urinary urgency Musc Denies arthralgias, Denies joint swelling, Denies numbness and Denies tingling Neuro Denies Abnormal speech present, Denies behavioral changes, Denies vertigo, Denies dizziness, Denies headache(s), Denies loss of vision, Denies memory loss, Denies numbness and Denies tingling Psych Denies anxiety, Denies behavioral changes, Denies depression, Denies memory loss and Denies panic attacks Abrahan/Lymph Denies easy bleeding and Denies easy bruising Aller/Immun Denies wheezing Physical exam (Primary Care) Vital Signs: Last Vital Signs Temp 97.1 F 05/04/25 14:26 Pulse 99 05/04/25 14:26 BP 122/75 05/04/25 14:26 Pulse Ox 95 05/04/25 14:26 Oxygen Delivery Method Room Air 05/04/25 14:26 BMI result Body Mass Index 30.0 Tobacco/Smoking Status: Tobacco use Status Tobacco use date assessed 05/04/25 05/04/25 14:37 Patient Tobacco Use Status Former Tobacco user 05/04/25 14:37 e-Cigarette/Vaping Use Never Used 05/04/25 14:37 PHQ-9: PHQ-9 Score PHQ-9: Total score 8 05/04/25 14:38 Depression Screening Interpretation: Positive Depression Screening Follow-up: Existing condition Thrive Assessment: Date of Thrive Assessment Date Thrive assessed 12/23/24 05/04/25 14:37 Currently or been in a relationship where the following occur: No concerns reported Const General: healthy appearing, no acute distress, alert and awake Nutritional Appearance: well nourished Orientation/consciousness: oriented to person, oriented to place and oriented to time HENMT Ears: TM's normal bilaterally General nose exam: Normal nasal mucous membranes and turbinates present Eyes Conjunctivae: conjunctivae normal Sclerae: sclerae normal Pupils: Equal, round and reactive pupils present Neck Neck: Yes no lymphadenopathy and Yes no JVD Thyroid: Thyroid normal Carotids: no bruits Resp Effort & Inspection: normal respiratory effort and not tachypneic Auscultation: no crackles, no rales, no rhonchi and no wheezes Cardio Rate: regular rate Rhythm: regular rhythm Heart sounds: no murmurs and normal S1 and S2 GI Palpation (GI): Soft to palpation, nontender, no hepatomegaly and no splenomegaly Auscultation: normal bowel sounds Skin General skin exam: no rashes or lesions noted and dry skin Neuro General: oriented to person, oriented to place and oriented to time Cranial nerves: Yes Equal, round and reactive pupils present Speech: No Abnormal speech present Gait exam (Neuro): Normal gait present Motor exam (neuro): no tremor noted Extrem Other: BILATERAL PEDAL EDEMA NOTED Right upper extremity: full ROM Left upper extremity: full ROM Right lower extremity: full ROM and edema Left lower extremity: full ROM and edema Psych Mental Status: mental status grossly normal Speech and movement: Normal speech and movement present Affect: normal affect Attitude: cooperative Thought process: Normal thought process present Results AMB Hemoglobin A1c AMB Hemoglobin A1c 10.0 % Last Edit by KRISTY Kitchen on 05/04/25 14:3 8 Results Reviewed Results Reviewed: Laboratory Last Values Hgb A1c (Clinic) 10.0 % (4.0-6.0) H 05/04/25 14:24 Coding Level of Care Code Est Pt Level 4 (48990) Diagnoses Type 2 diabetes mellitus with polyneuropathy E11.42 Hyperlipidemia LDL goal <100 E78.5 Primary hypertension I10 Hypertension type: primary hypertension Dementia without behavioral disturbance, unspecified dementia type F03.90 Dementia behavioral disturbance: without behavioral disturbance Dementia type: unspecified type MDD (major depressive disorder), recurrent episode, moderate F33.1 Primary osteoarthritis of both knees M17.0 Osteoarthritis type: primary Additional Codes PHQ-9 - 00645 - PHQ-9 Billing: Yes ([id number]) MARIANA-7 Assessment Billing - MARIANA-7 Assessment Tool: MARIANA-7 Assessment [id number] ([id number]) Assessment & Plan Assessment & Plan (1) Type 2 diabetes mellitus with polyneuropathy: Code(s): E11.42 - Type 2 diabetes mellitus with diabetic polyneuropathy Category: Medical Plan: Patient's diabetes has been suboptimally controlled. Today's A1c at 10. Family does report patient does not have great diet. 200- 300. Will increase his Tresiba to 20 units and also his Trulicity up to 1.5 mg weekly. Continues on metformin 1000 twice a day. Goal A1c is to be below 8.5 due to age and comorbidities (2) Hyperlipidemia LDL goal <100: Code(s): E78.5 - Hyperlipidemia, unspecified Category: Medical Plan: Patient continues with the use of atorvastatin 40 mg. Most recent lipid panel showing good control of his total cholesterol and LDL. Goal LDL to remain below 100 (3) HTN (hypertension): Code(s): I10 - Essential (primary) hypertension Category: Medical Qualifiers: Hypertension type: primary hypertension Qualified Code(s): I10 - Essential (primary) hypertension Plan: Patient's blood pressure acceptable today in office. Will continue his current dose of lisinopril with goal blood pressure to remain below 140/90 (4) Dementia: Code(s): F03.90 - Unspecified dementia, unspecified severity, without behavioral disturbance, psychotic disturbance, mood disturbance, and anxiety Category: Medical Qualifiers: Dementia behavioral disturbance: without behavioral disturbance Dementia type: unspecified type Qualified Code(s): F03.90 - Unspecified dementia without behavioral disturbance Plan: Then seems to have some progressing dementia. Family reports he is often very stubborn and does not want to go to doctor's appointments.. Continues with Aricept Patient has very good support by family at home takes seemingly good care of him. (5) MDD (major depressive disorder), recurrent episode, moderate: Code(s): F33.1 - Major depressive disorder, recurrent, moderate Category: Medical Plan: Patient's PHQ-9 score positive for depression which has been existing condition for him. Family is not interested in mental health therapy for patient as he is fairly demented. Continues on mirtazapine at night at 7.5 mg. (6) Osteoarthritis of knees, bilateral: Code(s): M17.0 - Bilateral primary osteoarthritis of knee Category: Medical Qualifiers: Osteoarthritis type: primary Qualified Code(s): M17.0 - Bilateral primary osteoarthritis of knee Plan: Patient's family reports Clemente does complain of pain in his knees mostly which causes him to be mostly sedentary had home. Will supply patient with p.r.n. use of tramadol for pain. Patient has not been able to tolerate NSAIDs due to gross hematuria. Patient family will monitor him closely for any side effects of tramadol use. Orders: Orders Microalbumin, Random (w Creat) 05/04/25 E11.42 - Type 2 diabetes mellitus with diabetic polyneuropathy Lipid Panel 05/04/25 E78.5 - Hyperlipidemia, unspecified AMB Hemoglobin A1c 05/04/25 E11.42 - Type 2 diabetes mellitus with diabetic polyneuropathy Comprehensive Met. Panel 05/04/25 E11.42 - Type 2 diabetes mellitus with diabetic polyneuropathy Complete Blood Count no Diff 05/04/25 E11.42 - Type 2 diabetes mellitus with diabetic polyneuropathy [facility]errals [facility] Referral F03.90 - Unspecified dementia, unspecified severity, without behavioral disturbance, psychotic disturbance, mood disturbance, and anxiety Medications: New dulaglutide (Trulicity) 1.5 mg (0.5 mL) subcut QWEEK 2.5 mL 3RF 30 days E11.42 - Type 2 diabetes mellitus with diabetic polyneuropathy tramadol 50 mg PO BEDTIME 10 tabs 0RF 10 days M17.0 - Bilateral primary osteoarthritis of knee Changed From insulin degludec (Tresiba FlexTouch U-100 insulin) 10 units (0.1 mL) subcut DAILY 30 days 3 mL 2RF E11.42 - Type 2 diabetes mellitus with diabetic polyneuropathy To insulin degludec (Tresiba FlexTouch U-100 insulin) 20 units (0.2 mL) subcut DAILY 6 mL 2RF 30 days E11.42 - Type 2 diabetes mellitus with diabetic polyneu ropathy From furosemide 10 mg (1/2 x 20 mg) PO DAILY 14 days 7 tabs 0RF R60.0 - Localized edema To furosemide 10 mg (1/2 x 20 mg) PO DAILY 15 tabs 1RF 30 days R60.0 - Localized edema Refilled atorvastatin 40 mg PO QAM 90 tabs 4RF E11.42 - Type 2 diabetes mellitus with diabetic polyneuropathy dimethicone 12.5% (Hydraguard-D) 1 appl topical DAILY 118 mL 11RF 30 days R32 - Unspecified urinary incontinence lisinopril 10 mg PO QAM 90 tabs 4RF mirtazapine 7.5 mg PO BEDTIME 90 tabs 1RF 90 days F33.1 - Major depressive disorder, recurrent, moderate pen needle, diabetic 1 ea subcut DAILY 100 ea 2RF E11.42 - Type 2 diabetes mellitus with diabetic polyneuropathy lidocaine 4% 1 patch topical DAILY PRN 30 ea 0RF pain E11.42 - Type 2 diabetes mellitus with diabetic polyneuropathy Discontinued dulaglutide (Trulicity) Discontinued Reason: Doctor's Order 0.75 mg (0.5 mL) subcut QWEEK 4 weeks 2 mL 1RF E11.42 - Type 2 diabetes mellitus with diabetic polyneuropathy Resumed aspirin 81 mg PO QAM 90 ea 1RF E11.42 - Type 2 diabetes mellitus with diabetic polyneuropathy Patient Instructions: Goal: A1c to be below 8.5, LDL to remain below 100 Barriers: Moderate to severe Dementia, adherence to physical activity and healthy eating habits
[2025-05-04 14:26] VITALS: BP 122/75; PULSE 99; TEMP 36.2; O2SAT 95
== END 2025-05-04 15:16 | disposition home or self-care (01) ==
LOC: HO.HMCH 14:10
PROVIDERS: PCP Physician Assistant; Visit Provider Physician Assistant
DX: E11.42 Type 2 diabetes mellitus with diabetic polyneuropathy (principal)

== ENCOUNTER → 2025-05-04 14:09 | Outpatient (BNVA) | payer OTHER, SELFPAY | PROVIDERS: PCP Physician Assistant; Visit Provider Physician Assistant | DX: E11.42 Type 2 diabetes mellitus with diabetic polyneuropathy (principal); E78.5 Hyperlipidemia, unspecified; I10 Essential (primary) hypertension; F03.90 Unspecified dementia, unspecified severity, without behavioral disturbance, psychotic disturbance, mood disturbance, and anxiety; F33.1 Major depressive disorder, recurrent, moderate; M17.0 Bilateral primary osteoarthritis of knee | CPT/HCPCS: 83036; 96127; 99212 ==

== ENCOUNTER 2025-06-01 16:33 | Outpatient (AMB) | payer OTHER, SELFPAY ==
[2025-06-01 16:36] VITALS: BP 154/70; PULSE 87; RESP 18; TEMP 36.2; O2SAT 98; BMI 29.2
--- NOTE | 2025-06-01 16:36 | MHC.PC.OV ---
Vital Signs 06/01/25 16:36 Height 5 ft 6 in Weight 181 lb BMI 29.2 BP 154/70 H Blood Pressure Location Lt brachial Position Sitting Respiration 18 Pulse 87 Pulse Source Pulse Oximeter Temp 97.1 F Temp Source Temporal Artery Scan Pulse Oximetry (%) 98 Oxygen Delivery Method Room Air Intake Visit Reasons: signs of dementia Online Communications Specialist Required: No Accompanied by: Self / Same As Patient Allergies No Known Allergies (No Known Allergies*) Allergy (Verified 06/01/25 16:37) Tobacco use date assessed: 06/01/25 Fall risk assessment: No Falls in past year Last assessed Fall Risk: 06/01/25 Dental Screening Dental Screen Date: 06/01/25 Did you have a dental visit in the last 12 months?: No Did you have a dental problem in the last 6 months where you did not have access to dental care?: No Was dental information given to patient?: No HPI HPI Comments History of Present Illness Details Patient is an 89-year-old male, accompanied by his daughter and granddaughter, presenting with acute confusion and urinary incontinence. Patient with a known history of dementia presenting with abrupt worsening of his dementia symptoms over the weekend per daughter, revealing heightened confusion and episodes of screaming, during which he failed to recognize familiar settings or people. He has been noted to exhibit increased urinary incontinence since Sunday, which is corroborated by strong odors in his room over this period. No hematuria or dysuria reported. Daughter also reports an episode of fecal incontinence. He was last seen in clinic a month ago when he was noted to have uncontrolled diabetes with elevated A1c, for which he had history of SIBO and Trulicity doses increased. Furosemide was also added for lower extremity edema. [facility] Medical History Skin lesion of cheek Type 2 diabetes mellitus with polyneuropathy Memory difficulties Prostate cancer Type 2 diabetes mellitus with polyneuropathy Hyperlipidemia LDL goal <100 Surgical History History of cataract surgery History of open reduction and internal fixation (ORIF) procedure Family History Father No problems noted. Mother FH: ovarian cancer Daughter Drowning, accidental Daughter Lupus Social History Household Members Other:: DAughter Housing: House Alcohol intake: former Patient Tobacco Use Status: Former Tobacco user e-Cigarette/Vaping Use: Never Used Second Hand Smoke Exposure: Yes service: No Current occupational status: disabled Cognitive needs: Yes (Walker) Hearing needs: No Vision needs: No Questionnaire Thrive Questionnaire Date Thrive assessed: 12/23/24 I am a: Parent/Caregiver What is your living situation today?: I have a steady place to live Within the past 12 months, did the food you bought not last and you didn't have the money to get more?: Never true Within the past 12 months, did you worry whether your food would run out before you got money to buy more?: Never true Do you have trouble paying for medicines?: No Do you have trouble getting transportation to medical appointments?: No Do you have trouble paying your heating and electricity bill?: No Do you have trouble taking care of your child, family member or friend?: No Do you have trouble with day-to-day activities such as bathing, preparing meals, shopping, managing finances, etc.?: Yes Are you currently unemployed and looking for a job?: I choose not to answer this question Are you interested in more education?: No Please select the resources that you would like help with: None Currently or been in a relationship where the following occur: No concerns reported THRIVE Score: 0 MARIANA-7 AMB Questionnaire MARIANA-7 Date MARIANA - 7 assessed: 05/04/25 Source: Developed by Drs. Dev Thompson, Leila Saini, Glen Santiago and colleagues, with an educational rica from [employer]. Physical exam (Primary Care) Vital Signs: Last Vital Signs Temp 97.1 F 06/01/25 16:36 Pulse 87 06/01/25 16:36 Resp 18 06/01/25 16:36 BP 154/70 H 06/01/25 16:36 Pulse Ox 98 06/01/25 16:36 Oxygen Delivery Method Room Air 06/01/25 16:36 General: Well-appearing, alert, oriented to self but not to place or time, in no acute distress. Patient was also confused about family members in the room with him. Cardiovascular: RRR, S1-S2 appreciated, no murmurs, rubs or gallops. Respiratory: Lungs clear to auscultation bilaterally, no wheezes, rales or rhonchi. Abdomen: Soft, nontender, nondistended. Normoactive bowel sounds. BMI result Body Mass Index 29.2 Tobacco/Smoking Status: Tobacco use Status Tobacco use date assessed 06/01/25 06/01/25 16:39 Patient Tobacco Use Status Former Tobacco user 06/01/25 16:39 e-Cigarette/Vaping Use Never Used 06/01/25 16:39 Thrive Assessment: Date of Thrive Assessment Date Thrive assessed 12/23/24 06/01/25 16:39 Currently or been in a relationship where the following occur: No concerns reported Office Procedures Flu Questionnaire Does the patient have a severe egg allergy?: No Does the patient have severe life threatening allergies?: No Does the patient have a fever or illness today?: No Has the patient ever had Guillain-[place] Syndrome?: No Has the patient ever had any past reaction to a flu shot?: No Immunizations Fluarix [id number] (PF) 45 mcg (15 mcg x 3)/0.5 mL IM syringe Performing Provider: Estefanía Narvaez MD [place] [facility] [place] [facility] Administered by: Ce Merino CMA on 06/01/25 17:37 Dose Route Admin Location Dispensed Lot Number Expiration Date [facility] Booking Manager 0.5 mL IM Right Deltoid 0.5 mL [id number] 01/26/26 [id number] [employer] VIS Given Date VIS Provided VIS Publication Date 06/01/25 Single Vaccine 24 Eligibility Eligibility Date Funding Source Not [facility] Eligible 06/01/25 Private Coding Level of Care Code Est Pt Level 4 (57171) Diagnoses Acute delirium R41.0 Increased urinary frequency R35.0 Assessment & Plan Assessment & Plan (1) Acute delirium: Code(s): R41.0 - Disorientation, unspecified Category: Medical Plan: Patient with a known history of dementia presenting with acute confusion for 3 days, with reports of increased urinary frequency and foul-smelling urine, increasing suspicion for possible UTI. - obtain urinalysis with reflex to culture -start Bactrim twice a day for 7 days' course. - patient to complete blood work ordered from prior visit (2) Increased urinary frequency: Code(s): R35.0 - Frequency of micturition Plan as above Orders: Orders UA CC w/rflx Micro + Cult Today R35.0 - Frequency of micturition Influenza [id number] Immunization Today Z23 - Encounter for immunization Medications: New sulfamethoxazole-trimethoprim 800-160 mg 1 tab PO BID 14 tabs 0RF
--- OUTSIDE RECORDS SUMMARY | 2025-06-01 17:17 | XMS_ITS | Data Portability ---
Author Organization [facility], [facility] Address [address] [place] [address] Care Team Providers Care Advertising Sales Manager Name Role Phone SARAH MUSE Primary Care Provider HIM CCA OTHER Assessment Encounter Date Assessment Date Assessment LastModified by Organization Details LastModified Time 08/06/2024 08/06/2024 I provided real -time medical direction via phone for this encounter and was available for additional phone-based assistance as needed. I have reviewed and agree with the Assessment and Plan as documented by the Highway Patrol Commander. Patient given the opportunity to ask questions. Our service contacted for an assessment of: Insomnia As per above, patient with chronic issue of insomnia. Also has underlying dementia. Staff found him sitting up in his chair in the middle of the night. He has no complaints. Per supervisor channel process on the scene he has stable vitals [...] Imaging electrocard iogram 2022 023 [email or web address] [facility], [address] [place], [address] 15:33:36 Medication Orders None recorded. Patient TargetsNo targets recorded. Patient InstructionsNo instructions recorded. Reason for Referral None Reported. Results Created Date Observation Date Name Description Value Unit Range Abnormal Flag Note LastModifiedBy Organization Detail LastModifiedTime 04/18/2004/18/2023 iesha weller am No observ ation record ed. [email or web address] [facility] ed [address] [place], [phone] 04/18/2023 15:33:19 Result Notes None recorded. Medical [...] blood by Pulse oximetry Body temperature Systolic And Diastolic Provider Name and Address Organization Details Last Updated DateTime 5 09563.4 g 14 /min 80 /min 167.64 cm 98 % 98 % 98 [degF] 136/72 mm[Hg] Not Available [facility] 5 16:07:42 Date Recorded Heart rate Body temperature Respiratory rate Oxygen saturation Oxygen saturation in Arterial blood by Pulse oximetry Systolic And Diastolic Provider Name and Address Organization Details Last Updated DateTime 3 90 /min 97.1 [degF] 16 /min 97 % 97 % 160/85 mm[Hg] Not Available [facility] [place] 3 15:29:42 Social History None recorded. Functional Status None recorded. Mental Status None recorded. Family History Nothing Reported. Medical History No medical history recorded. Past Encounters Encounter ID Performer Location Encounter Start Date Encounter Closed Date Diagnosis/Indication Diagnosis SNOMED-CT Code Diagnosis ICD10 Code Diagnosis IMO Codes Diagnosis Note [id number] Andrew Salcedo MD [facility] [address] [place] [phone] 04/18/2023 15:29:27 04/18/2023 23:12:54 Chest pain 92720325 R07.9 88yo man with dementia presents after [...] more blood pressure medication at this age. [id number] Lili Bullock MD [facility] - [facility] [address] [place] [phone] 08/06/2024 16:07:39 08/06/2024 17:55:22 Insomnia 675070041 G47.00 Health Concerns Section Related Observation LastModified by Organization Detai ls LastModified Time None Recorded Concern Status LastModified by Organization Details LastModified Time None Recorded Advance Directives Directive None Recorded Payers Insurance Date Sequence Insurance Name Policy Number Policy Cotto Covered Member ID Cotto Member ID Guarantor Name 08/06/2024 1 [facility] - DOS ON OR AFTER 2022 - DUAL ELIGIBLE - ASSISTED OPTIONS AND ONE CARE (MEDICARE REPLACEMENT/ADV ANTAGE - HMO) Clemente Ivresonnte [id number] Clemente Rajput Notes Date Note Type Note Provider Name and Address Organization Details Recorded Time 04/18/2023 text/html ROS as noted in the HPI CRC Nursing Assessment: Reason For Request: HTN [...] does not always complain Andrew Salcedo MD [address] [place] [address],[address], [place], [address], ITT EXIM 04/18/2023 15:33:48 08/06/2024 text/html CRC Nurse Triage [...] Allergies Reviewed at 08/06/2024 - 11: Comments: Inventory Auditor verified the patient's name//address and phone number. [...] emergency treatment if needed -Shital Tenorio RN Highway Patrol Commander Organization Information for Singh Reddy [employer] Legal Name: [facility] Address: [address] [place] [address], [place] [address], Clinical Analyst: Andreas Huff MD [facility] No.: [id number] Highway Patrol Commander POC Test Results from Singh Reddy Blood Glucose Measurement (13:35:18) Blood Glucose: 189 mg/dL ..................... ..................... ..................... ..................... ..................... ..................... ............... Highway Patrol Commander Note From Singh Reddy: Patient alert, in [...] tender no edema noted. Good skin turgor. [facility] [place] follow up with PCP to inquire about further testing or sleep aids. Supportive care discussed. Red flags patient education discussed. Caregivers demonstrate understanding of care and plan. ..................... ..................... ..................... ..................... ..................... ..................... ............... [facility] Consulted: Lili Bullock ..................... ..................... ..................... ..................... ..................... ..................... ............... Disposition: Fulfilled Lili Bullock MD [address] [facility],[address], [place], [address], ROGER DEL CID 08/06/2024 16:10:40
== END 2025-06-01 17:34 | disposition home or self-care (01) ==
LOC: HO.HMCH 16:33
PROVIDERS: PCP Physician Assistant; Visit Provider Student in an Organized Health Care Education/Training Program
DX: R41.0 Disorientation, unspecified (principal); R35.0 Frequency of micturition; Z23 Encounter for immunization

== ENCOUNTER 2025-06-01 16:33 | Outpatient (REF) | payer OTHER, SELFPAY ==
[2025-06-01 18:56] LABS: Appearance Urine Clear; Glucose Urine UA Negative (Negative); PH 5.5 (5.0-9.0); Specific Gravity - Urine 1.025 (1.005-1.025)
== END 2025-06-01 16:34 | disposition home or self-care (01) ==
LOC: HO.LNP 16:33
PROVIDERS: PCP Physician Assistant; Visit Provider Student in an Organized Health Care Education/Training Program
DX: R35.0 Frequency of micturition (principal); R41.0 Disorientation, unspecified; F03.90 Unspecified dementia, unspecified severity, without behavioral disturbance, psychotic disturbance, mood disturbance, and anxiety; R32 Unspecified urinary incontinence; E11.9 Type 2 diabetes mellitus without complications; Z23 Encounter for immunization
CPT/HCPCS: 81003; 90471; 90656; 99212

== ENCOUNTER 2025-06-20 08:24 | Outpatient (REF) | payer OTHER, SELFPAY ==
--- NOTE | ~2025-06-20 | CT_ITS ---
EXAMINATION: CT HEAD WITHOUT IV CONTRAST HISTORY: R41.0 - Disorientation, unspecified. TECHNIQUE: Unenhanced helical CT of the head was performed per standard departmental protocol. Coronal and sagittal reformats of the head were also evaluated. One or more of the following techniques was used for dose reduction: Automated exposure control, adjustment of the mA and/or kV according to patient size, use of iterative reconstruction technique. DLP: 756 mGy-cm COMPARISON: Comparison is made with the prior examination dated 05/30/2018. FINDINGS: BRAIN: There is diffuse prominence of the ventricular system and cortical sulci, consistent with atrophy. Periventricular and subcortical white matter hypodensities are noted which are nonspecific, but often seen in the setting of small vessel ischemic disease. 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 There is no mass effect or midline shift. No intra- or extra-axial fluid collections are identified. SINUSES: The visualized paranasal sinuses are clear. The mastoid air cells and middle ear cavities are well pneumatized. ORBITS: The visualized orbits are unremarkable. BONES/SOFT TISSUES: The extracranial soft tissues are unremarkable. The calvarium is intact. No suspicious lytic or sclerotic lesions. CT/CT head/brain wo IV con IMPRESSION: No acute intracranial abnormality. Electronically signed by: Dev Watkins MD 06/22/2025 07:16 AM [facility]
--- OUTSIDE RECORDS SUMMARY | 2025-06-20 08:26 | XMS_ITS | Data Portability ---
Author Organization [facility], [facility] Address [address] [place] [address] Care Team Providers Care Encapsulator Name Role Phone SARAH MUSE Primary Care Provider HIM CCA OTHER Assessment Encounter Date Assessment Date Assessment LastModified by Organization Details LastModified Time 08/06/2024 08/06/2024 I provided real -time medical direction via phone for this encounter and was available for additional phone-based assistance as needed. I have reviewed and agree with the Assessment and Plan as documented by the Net Programmer. Patient given the opportunity to ask questions. Our service contacted for an assessment of: Insomnia As per above, patient with chronic issue of insomnia. Also has underlying dementia. Staff found him sitting up in his chair in the middle of the night. He has no complaints. Per mobile home servicer on the scene he has stable vitals [...] Imaging electrocard iogram 2022 [email or web address] [facility], [address] [place], [address] 15:33:36 Medication Orders None recorded. Patient TargetsNo targets recorded. Patient InstructionsNo instructions recorded. Reason for Referral None Reported. Results Created Date Observation Date Name Description Value Unit Range Abnormal Flag Note LastModifiedBy Organization Detail LastModifiedTime 04/18/2004/18/2023 iesha weller am No observ ation record ed. [email or web address] [facility] ed [address] [place], [address] 04/18/2023 15:33:19 Result Notes None recorded. Medical [...] rate Heart rate Body height Oxygen saturation Body temperature Systolic And Diastolic Provider Name and Address Organization Details Last Updated DateTime 5 36636.4 g 14 /min 80 /min 167.64 cm 98 % 98 [degF] 136/72 mm[Hg] Not Available [facility] - [employer] 5 16:07:42 Date Recorded Heart rate Body temperature Respiratory rate Oxygen saturation Systolic And Diastolic Provider Name and Address Organization Details Last Updated DateTime 3 90 /min 97.1 [degF] 16 /min 97 % 160/85 mm[Hg] Not Available [facility] [employer] 3 15:29:42 Social History None recorded. Functional Status None recorded. Mental Status None recorded. Family History Nothing Reported. Medical History No medical history recorded. Past Encounters Encounter ID Performer Location Encounter Start Date Encounter Closed Date Diagnosis/Indication Diagnosis SNOMED-CT Code Diagnosis ICD10 Code Diagnosis IMO Codes Diagnosis Note [id number] Andrew Salcedo MD [facility] - [facility] [address] [place] [phone] 04/18/2023 15:29:27 04/18/2023 23:12:54 Chest pain 69013255 R07.9 88yo man with dementia presents after [...] more blood pressure medication at this age. [id number] Lili Bullock MD Main - [facility] [address] [place] [phone] 08/06/2024 16:07:39 08/06/2024 17:55:22 Insomnia 158815355 G47.00 Health Concerns Section Related Observation LastModified by Organization Detai ls LastModified Time None Recorded Concern Status LastModified by Organization Details LastModified Time None Recorded Advance Directives Directive None Recorded Payers Insurance Date Sequence Insurance Name Policy Number Policy Cotto Covered Member ID Cotto Member ID Guarantor Name 08/06/2024 1 [facility] - DOS ON OR AFTER 2022 - DUAL ELIGIBLE - CORRECTION OPTIONS AND ONE CARE (MEDICARE REPLACEMENT/ADV ANTAGE - HMO) Clemente Rajput [id number] Clemente Iversonnte Notes Date Note Type Note Provider Name [...] not always complain Andrew Salcedo MD [address] [facility],[address], [place], [address], [employer] 04/18/2023 15:33:48 08/06/2024 text/html CRC Nurse Triage Notes (Randy Tenorio - ARANZA): Denies: Worst Headache of life New onset [...] Type 2 PMH Reviewed at 08/06/2024 - : Allergies Reviewed at 08/06/2024 - : Comments: Move Coordinator verified the patient's name//address and phone number. [...] emergency treatment if needed -Shital Tenorio RN Net Programmer Organization Information for Singh Reddy [employer] Legal Name: [facility] Address: [address] [place] [address], [place] [address], Medical I D Sales: Andreas KINNEY No.: [id number] Net Programmer POC Test Results from Singh Reddy Blood Glucose Measurement (13:35:18) Blood Glucose: 189 mg/dL ..................... ..................... ..................... ..................... ..................... ..................... ............... Net Programmer Note From Singh Reddy: Patient alert, in [...] tender no edema noted. Good skin turgor. [facility] follow up with PCP to inquire about further testing or sleep aids. Supportive care discussed. Red flags patient education discussed. Caregivers demonstrate understanding of care and plan. ..................... ..................... ..................... ..................... ..................... ..................... ............... [facility] Consulted: Lili Bullock ..................... ..................... ..................... ..................... ..................... ..................... ............... Disposition: Fulfilled Lili Bullock MD [address] [facility] [facility],[address], [place], [address], [place] - ROGER HAWKINS 08/06/2024 16:10:40
[2025-06-20 10:11] LABS: Hematocrit 35.4 % (42.0-52.0); Hemoglobin 11.6 g/dl (14.0-18.0); Mean Corpuscular HGB Conc 32.8 g/dl (31.0-36.0); Mean Corpuscular Hemoglobin 29.7 pg (27.0-33.0); Mean Corpuscular Volume 90.8 fL (80.0-98.0); NRBC Abs Auto 0.000 X10*3/uL (0.0-0.012); NRBC Pct Auto 0.0 /100WBC (0.0-0.2); Platelet Count 227 X10*3/uL (160-400); Red Blood Count 3.90 X10*6/uL (4.60-5.80); White Blood Count 5.2 X10*3/uL (4.8-10.8)
[2025-06-20 10:43] LABS: Alanine Aminotransferase 21 U/L (0-40); Albumin Level 4.4 g/dL (3.5-5.0); Alkaline Phosphatase 57 U/L (39-117); Anion Gap 14 (12-20); Aspartate Amino Transferase 21 U/L (5-37); Blood Urea Nitrogen 14 mg/dL (9-16); Calcium 9.4 mg/dL (8.4-10.2); Carbon Dioxide 27 mmol/L (22-29); Chloride 100 mmol/L (96-108); Cholesterol 128 mg/dL (<200); Estimated Glomerular Filt Rate > 60; HDL Cholesterol 49 mg/dL (>40); Potassium 4.0 mmol/L (3.3-5.1); Sodium 137 mmol/L (135-145); Total Protein 7.4 g/dL (6.5-8.0); Triglycerides 82 mg/dL (<150)
[2025-06-20 11:01] LABS: Microalbum/Creatinine Ratio Ur 63.9 ug/mg cr (<30)
[2025-06-20 11:07] LABS: Prostate Specific Antigen < 0.10 ng/mL (<0.05-4.0)
== END 2025-06-20 08:25 | disposition home or self-care (01) ==
LOC: HO.CT 08:24
PROVIDERS: Urology; Absent Provider Physician Assistant; PCP Physician Assistant; Visit Provider Student in an Organized Health Care Education/Training Program
DX: R41.0 Disorientation, unspecified (principal); C61 Malignant neoplasm of prostate; E11.42 Type 2 diabetes mellitus with diabetic polyneuropathy; E78.5 Hyperlipidemia, unspecified; Z12.5 Encounter for screening for malignant neoplasm of prostate
CPT/HCPCS: 36415; 70450; 80053; 80061; 82043; 82570; 84153; 85027

== ENCOUNTER → 2025-06-20 08:34 | Outpatient (BNV) | payer OTHER, SELFPAY | PROVIDERS: Absent Provider Physician Assistant; PCP Physician Assistant; Visit Provider Radiology Diagnostic Radiology | DX: R41.0 Disorientation, unspecified (principal) | CPT/HCPCS: 70450 ==